=== PATIENT | female | born 1955 | race American Indian/Alaskan Native ===

== ENCOUNTER 2017-03-24 13:02 | Emergency (ER) | payer MEDICARE ==
--- NOTE | 2017-03-24 14:31 | XRay Report ---
RIGHT SHOULDER: Trauma, pain. Routine views demonstrate normal bony and soft tissue structures with normal joint alignment of the shoulder. IMPRESSION: Normal study.
[2017-03-24 14:36] LABS: Albumin 2.2 g/dL (3.9-5); Albumin/Globulin Ratio 0.6 %; BUN/Creatinine Ratio 7.05; Bilirubin,Total 0.3 mg/dL (0.1-1.2); Calcium 7.7 mg/dL (8.4-10.2); Chloride 104.8 mmol/L (98-107); Potassium 4.3 mmol/L (3.6-5.0); Total Protein 5.6 g/dL (6.3-8.2)
[2017-03-24 14:46] LABS: Hematocrit 26.6 % (30.3-42.9); Hemoglobin 8.4 gm/dl (10.1-14.3); Mean Corpuscular HGB Conc 32 % (30-34); Mean Corpuscular Hemoglobin 28 pg (28-32); Mean Corpuscular Volume 89 fl (79-97); Platelet Count 198 K/mm3 (140-440); Red Cell Distribution Width 16.8 % (13.2-15.2); White Blood Count 7.8 K/mm3 (4.5-11.0)
--- NOTE | 2017-03-24 14:52 | XRay Report ---
Right knee: Trauma, pain. There is a suprapatellar joint effusion. No focal swelling. There is no fracture and no dislocation. There is calcification of the medial meniscus as well as atherosclerosis of the arterial vessels. Impression: Joint effusion possibly due to trauma. No fracture. RIGHT SHOULDER: Trauma, pain. Routine views demonstrate normal bony and soft tissue structures with normal joint alignment of the shoulder. IMPRESSION: Normal study.
[2017-03-24 15:03] LABS: INR 1.07 (0.87-1.13); Partial Thromboplastin Time 37.4 Sec. (24.2-36.6)
--- NOTE | 2017-03-24 15:31 | Emergency Department Report ---
HPI - General Chief Complaint: Fall Time Seen by Provider: 03/24/17 15:24 - HPI HPI: PATIENT SLIPPED AND FEEL TODAY, C/O RIGHT KNEE PAIN, RIGHT SHOULDER PAIN AFTER SLIPPING AND FALLING TODAY. ABLE TO AMBULATE ED Past Medical Hx - Past Medical History Previous Medical History?: Yes Hx Hypertension: Yes Hx Diabetes: Yes Hx Renal Disease: Yes (stage 5) Additional medical history: leaky valve - Surgical History Additional Surgical History: AV graft L. arm - Social History Smoking Status: Former Smoker Substance Use Type: None - Medications Home Medications: Home Medications Medication Instructions Recorded Confirmed Last Taken Type Aspirin [Adult Low Dose Aspirin EC] 81 mg PO DAILY 03/24/17 03/24/17 Unknown History AtorvaSTATin [Lipitor] 80 mg PO QHS 03/24/17 03/24/17 Unknown History B Complex & C No.20/Folic Acid 1 mg PO DAILY 03/24/17 03/24/17 Unknown History [Nephrocaps Softgel] Calcitriol [Rocaltrol] 1 mcg PO QDAY 03/24/17 03/24/17 Unknown History Cholecalciferol Vit D3 [Vitamin D3] 1,000 units PO DAILY 03/24/17 03/24/17 Unknown History Cinacalcet HCl [Sensipar] 60 mg PO DAILY 03/24/17 03/24/17 Unknown History Epoetin Domingo [Epogen] 20,000 unit SQ Q7D 03/24/17 03/24/17 Unknown History Gentamicin 0.1% Top Oint(Nf) 1 applic TP TID 03/24/17 03/24/17 Unknown History [Gentamicin 0.1% Top Oint (Nf)] Insulin NPH Hum/Reg Insulin Hm 30 unit SQ BID 03/24/17 03/24/17 Unknown History [HumuLIN 70-30 Vial] Midodrine [Proamatine] 5 mg PO TID PRN 03/24/17 03/24/17 Unknown History Pantoprazole [Protonix] 40 mg PO QDAY 03/24/17 03/24/17 Unknown History Prasugrel [Effient] 10 mg PO DAILY 03/24/17 03/24/17 Unknown History Sevelamer HCl [Renagel] 2,400 mg PO TID 03/24/17 03/24/17 Unknown History ED Review of Systems ROS: Stated complaint: Other details as noted in HPI Physical Exam - Physical Exam Vital Signs: Vital Signs 03/24/17 03/24/17 03/24/17 12:53 13:00 13:10 Temperature Pulse Rate 88 88 Respiratory 18 12 Rate Blood Pressure 167/79 163/73 Blood Pressure [Left] O2 Sat by Pulse 98 97 96 Oximetry 03/24/17 03/24/17 03/24/17 13:17 13:20 13:30 Temperature 98.2 F Pulse Rate 89 Respiratory 18 Rate Blood Pressure 167/79 169/76 169/76 Blood Pressure [Left] O2 Sat by Pulse 98 98 95 Oximetry 03/24/17 03/24/17 13:43 13:50 Temperature 98.5 F Pulse Rate 88 Respiratory 18 18 Rate Blood Pressure Blood Pressure 167/79 [Left] O2 Sat by Pulse 98 98 Oximetry Physical Exam: GENERAL: The patient is well-developed well-nourished. HEENT: Normocephalic. Atraumatic. Extraocular motions are intact. Patient has moist mucous membranes. NECK: Supple. No meningitic signs are noted. There is no adenopathy noted. CHEST/LUNGS: Clear to auscultation. There is no respiratory distress noted. HEART/CARDIOVASCULAR: Regular. There is no tachycardia. There is no gallop rub or murmur. ABDOMEN: Abdomen is soft, nontender. Patient has normal bowel sounds. There is no abdominal distention. SKIN: There is no rash. There is no edema. There is no diaphoresis. NEURO: The patient is awake, alert, and oriented. The patient is cooperative. The patient has no focal neurologic deficits. The patient has normal speech and gait. Cranial nerves II through XII grossly intact, no drift. Negative Romberg MUSCULOSKELETAL: r. knee tenderness ED Course Vital Signs 03/24/17 03/24/17 03/24/17 12:53 13:00 13:10 Temperature Pulse Rate 88 88 Respiratory 18 12 Rate Blood Pressure 167/79 163/73 Blood Pressure [Left] O2 Sat by Pulse 98 97 96 Oximetry 03/24/17 03/24/17 03/24/17 13:17 13:20 13:30 Temperature 98.2 F Pulse Rate 89 Respiratory 18 Rate Blood Pressure 167/79 169/76 169/76 Blood Pressure [Left] O2 Sat by Pulse 98 98 95 Oximetry 03/24/17 03/24/17 13:43 13:50 Temperature 98.5 F Pulse Rate 88 Respiratory 18 18 Rate Blood Pressure Blood Pressure 167/79 [Left] O2 Sat by Pulse 98 98 Oximetry ED Medical Decision Making - Lab Data Result diagrams: 03/24/17 13:59 03/24/17 13:59 - Radiology Data Radiology results: image reviewed Critical care attestation.: If time is entered above; I have spent that time in minutes in the direct care of this critically ill patient, excluding procedure time. ED Disposition Clinical Impression: Fall Qualifiers: Encounter type: initial encounter Qualified Code(s): W19.XXXA - Unspecified fall, initial encounter Knee pain, acute Qualifiers: Laterality: right Qualified Code(s): M25.561 - Pain in right knee Shoulder pain, acute Qualifiers: Laterality: right Qualified Code(s): M25.511 - Pain in right shoulder Disposition: DC-01 TO HOME OR SELFCARE Is pt being admited?: No Does the pt Need Aspirin: No Condition: Stable Referrals: FABIO ROSENTHAL MD [Primary Care Provider] - 3-5 Days
[2017-03-24 16:28] VITALS: BP 150/75
== END 2017-03-24 16:28 | disposition home or self-care (01) ==
LOC: ED 13:02 → EDSTATUS 13:05 → ED 16:28
DX: M25.561 Pain in right knee (principal); M25.511 Pain in right shoulder; E11.22 Type 2 diabetes mellitus with diabetic chronic kidney disease; I12.0 Hypertensive chronic kidney disease with stage 5 chronic kidney disease or end stage renal disease; N18.5 Chronic kidney disease, stage 5; Z87.891 Personal history of nicotine dependence; Z79.82 Long term (current) use of aspirin; W01.0XXA Fall on same level from slipping, tripping and stumbling without subsequent striking against object, initial encounter; Y93.89 Activity, other specified; Y92.89 Other specified places as the place of occurrence of the external cause; Y99.8 Other external cause status
CPT/HCPCS: 36415; 74000; 80053; 85027; 85610; 85730

== ENCOUNTER 2017-05-07 13:35 | Outpatient (CLI) | payer MEDICARE ==
[2017-05-07] MEDS ORDERED: XYLOCAINE TOPICAL 4% TP ONE (14:23)
== END 2017-05-07 13:36 | disposition home or self-care (01) ==
LOC: WOUND 13:35
PROVIDERS: ATTEND Podiatrist
DX: E11.621 Type 2 diabetes mellitus with foot ulcer (principal); L97.411 Non-pressure chronic ulcer of right heel and midfoot limited to breakdown of skin; E11.51 Type 2 diabetes mellitus with diabetic peripheral angiopathy without gangrene; E11.42 Type 2 diabetes mellitus with diabetic polyneuropathy; E11.22 Type 2 diabetes mellitus with diabetic chronic kidney disease; I12.0 Hypertensive chronic kidney disease with stage 5 chronic kidney disease or end stage renal disease; N18.6 End stage renal disease; Z99.2 Dependence on renal dialysis; Z98.62 Peripheral vascular angioplasty status; Z87.891 Personal history of nicotine dependence
CPT/HCPCS: 99215; G0463

== ENCOUNTER 2017-05-13 18:58 | Outpatient (CLI) | payer MEDICARE ==
--- NOTE | 2017-05-26 13:32 | XRay Report ---
Right foot 3 views: History: Right heel ulcer. Findings: Osteopenia. Vascular calcifications. No periosteal reaction or lytic lesion. Patient status post tonsillectomy amputation proximal phalanx fifth toe. Normal appearing calcaneum. Impression: Findings as detailed above. If clinically osteomyelitis is suspected bone scan would be recommended.
== END 2017-05-13 18:59 | disposition home or self-care (01) ==
LOC: XRAY 18:58
PROVIDERS: ATTEND Podiatrist
DX: L97.519 Non-pressure chronic ulcer of other part of right foot with unspecified severity (principal); M85.871 Other specified disorders of bone density and structure, right ankle and foot; M25.871 Other specified joint disorders, right ankle and foot; I12.0 Hypertensive chronic kidney disease with stage 5 chronic kidney disease or end stage renal disease; N18.5 Chronic kidney disease, stage 5; Z89.421 Acquired absence of other right toe(s); Z90.89 Acquired absence of other organs

== ENCOUNTER 2017-05-14 11:23 | Outpatient (CLI) | payer MEDICARE ==
[2017-05-14] MEDS ORDERED: XYLOCAINE TOPICAL 4% TP ONE ×2 (12:00→13:24)
== END 2017-05-14 11:24 | disposition home or self-care (01) ==
LOC: WOUND 11:23
PROVIDERS: ATTEND Podiatrist
DX: E11.621 Type 2 diabetes mellitus with foot ulcer (principal); L97.411 Non-pressure chronic ulcer of right heel and midfoot limited to breakdown of skin; E11.42 Type 2 diabetes mellitus with diabetic polyneuropathy; E11.51 Type 2 diabetes mellitus with diabetic peripheral angiopathy without gangrene; E11.22 Type 2 diabetes mellitus with diabetic chronic kidney disease; I12.0 Hypertensive chronic kidney disease with stage 5 chronic kidney disease or end stage renal disease; N18.6 End stage renal disease; Z99.2 Dependence on renal dialysis; Z98.62 Peripheral vascular angioplasty status

== ENCOUNTER 2017-05-21 13:49 | Outpatient (CLI) | payer MEDICARE ==
[2017-05-21] MEDS ORDERED: XYLOCAINE TOPICAL 4% TP ONE (14:10)
== END 2017-05-21 13:50 | disposition home or self-care (01) ==
LOC: WOUND 13:49
PROVIDERS: ATTEND Podiatrist
DX: E11.621 Type 2 diabetes mellitus with foot ulcer (principal); L97.412 Non-pressure chronic ulcer of right heel and midfoot with fat layer exposed; E11.36 Type 2 diabetes mellitus with diabetic cataract; E11.51 Type 2 diabetes mellitus with diabetic peripheral angiopathy without gangrene; E11.42 Type 2 diabetes mellitus with diabetic polyneuropathy; E11.22 Type 2 diabetes mellitus with diabetic chronic kidney disease; I12.0 Hypertensive chronic kidney disease with stage 5 chronic kidney disease or end stage renal disease; N18.6 End stage renal disease; Z99.2 Dependence on renal dialysis; Z98.61 Coronary angioplasty status; Z87.891 Personal history of nicotine dependence

== ENCOUNTER 2017-06-04 12:56 | Outpatient (CLI) | payer MEDICARE ==
[2017-06-04] MEDS ORDERED: XYLOCAINE TOPICAL 4% TP ONE ×2 (13:13→14:00)
== END 2017-06-04 12:57 | disposition home or self-care (01) ==
LOC: WOUND 12:56
PROVIDERS: ATTEND Podiatrist
DX: E11.621 Type 2 diabetes mellitus with foot ulcer (principal); L97.412 Non-pressure chronic ulcer of right heel and midfoot with fat layer exposed; E11.51 Type 2 diabetes mellitus with diabetic peripheral angiopathy without gangrene; E11.22 Type 2 diabetes mellitus with diabetic chronic kidney disease; E11.42 Type 2 diabetes mellitus with diabetic polyneuropathy; I12.0 Hypertensive chronic kidney disease with stage 5 chronic kidney disease or end stage renal disease; N18.6 End stage renal disease; Z99.2 Dependence on renal dialysis; Z98.62 Peripheral vascular angioplasty status; Z87.891 Personal history of nicotine dependence

== ENCOUNTER 2017-06-25 13:07 | Outpatient (CLI) | payer MEDICARE ==
[2017-06-25] MEDS ORDERED: XYLOCAINE TOPICAL 4% TP ONE (13:41)
== END 2017-06-25 13:08 | disposition home or self-care (01) ==
LOC: WOUND 13:07
PROVIDERS: ATTEND Podiatrist
DX: E11.621 Type 2 diabetes mellitus with foot ulcer (principal); L97.412 Non-pressure chronic ulcer of right heel and midfoot with fat layer exposed; E11.51 Type 2 diabetes mellitus with diabetic peripheral angiopathy without gangrene; E11.22 Type 2 diabetes mellitus with diabetic chronic kidney disease; I12.0 Hypertensive chronic kidney disease with stage 5 chronic kidney disease or end stage renal disease; N18.6 End stage renal disease; E11.42 Type 2 diabetes mellitus with diabetic polyneuropathy; Z99.2 Dependence on renal dialysis; Z98.42 Cataract extraction status, left eye; Z98.41 Cataract extraction status, right eye; Z87.891 Personal history of nicotine dependence

== ENCOUNTER 2017-07-09 13:22 | Outpatient (CLI) | payer MEDICARE ==
[2017-07-09] MEDS ORDERED: XYLOCAINE TOPICAL 4% TP ONE (13:49)
== END 2017-07-09 13:23 | disposition home or self-care (01) ==
LOC: WOUND 13:22
PROVIDERS: ATTEND Podiatrist
DX: E11.621 Type 2 diabetes mellitus with foot ulcer (principal); L97.412 Non-pressure chronic ulcer of right heel and midfoot with fat layer exposed; E11.51 Type 2 diabetes mellitus with diabetic peripheral angiopathy without gangrene; E11.42 Type 2 diabetes mellitus with diabetic polyneuropathy; E11.22 Type 2 diabetes mellitus with diabetic chronic kidney disease; I12.0 Hypertensive chronic kidney disease with stage 5 chronic kidney disease or end stage renal disease; N18.6 End stage renal disease; G62.9 Polyneuropathy, unspecified; Z87.891 Personal history of nicotine dependence; Z99.2 Dependence on renal dialysis; Z98.41 Cataract extraction status, right eye; Z98.42 Cataract extraction status, left eye

== ENCOUNTER 2017-07-14 18:30 | Inpatient (IN) | payer MEDICARE ==
[2017-07-14 19:10] LABS: Basophils % (Auto) 1.4 % (0.0-1.8); Eosinophils % (Auto) 3.2 % (0.0-4.3); Mean Corpuscular HGB Conc 30 % (30-34); Mean Corpuscular Hemoglobin 27 pg (28-32); Mean Corpuscular Volume 90 fl (79-97); Platelet Count 177 K/mm3 (140-440); Red Blood Count 3.46 M/mm3 (3.65-5.03); Red Cell Distribution Width 16.8 % (13.2-15.2); White Blood Count 7.7 K/mm3 (4.5-11.0)
[2017-07-14 19:15] LABS: Hematocrit 31.3 % (30.3-42.9); Hemoglobin 9.4 gm/dl (10.1-14.3)
[2017-07-14 19:32] LABS: Albumin 3.6 g/dL (3.9-5); Albumin/Globulin Ratio 1.2 %; Bilirubin,Total 0.2 mg/dL (0.1-1.2); Calcium 7.5 mg/dL (8.4-10.2); Chloride 104.8 mmol/L (98-107); Potassium 5.9 mmol/L (3.6-5.0); Total Protein 6.6 g/dL (6.3-8.2)
--- NOTE | 2017-07-15 08:36 | Emergency Department Report ---
ED Medical Clearance HPI - General Chief complaint: Nausea/Vomiting/Diarrhea Stated complaint: NEEDS TO BE DIALYSIS Time Seen by Provider: 07/15/17 08:31 Source: patient, RN notes reviewed Mode of arrival: Ambulatory Limitations: No Limitations - History of Present Illness Initial comments: This is a 62-year-old female who was previously unknown to this provider, past medical history includes an stage renal disease on peritoneal dialysis. Her splitter operator is Dr. Nolasco She has a right sided hemodialysis access catheter in her anterior chest wall. It has been there for 3 months. She reports that it works. She reports that her peritoneal dialysis access catheter stopped working a few weeks ago. Her symptoms are constant. They do not radiate anywhere. They do not have a qualitative nature. They do not have exacerbating or relieving factors, with the exception of dialysis, which she believes will improve her symptoms. MD Complaint: other -: Gradual, week(s) Reason for Medical Clearance: other Place: home Alledged Intoxication: No Compliant with Home Medications: Yes Traumatic Symptoms: denies traumatic injury Associated Symptoms: shortness of breath, malaise, nausea/vomiting. denies: chest pain, palpitations, diaphoresis, confusion, cough, fever/chills, headaches , anorexia, rash, seizure, syncope, weakness Home medications: Home Medications Medication Instructions Recorded Confirmed Last Taken Aspirin [Adult Low Dose Aspirin EC] 81 mg PO DAILY 03/24/17 07/15/17 Unknown AtorvaSTATin [Lipitor] 80 mg PO QHS 03/24/17 07/15/17 Unknown B Complex W-C No.20/Folic Acid 1 mg PO DAILY 03/24/17 07/15/17 Unknown [Nephrocaps Softgel] Calcitriol [Rocaltrol] 1 mcg PO QDAY 03/24/17 07/15/17 Unknown Cholecalciferol Vit D3 [Vitamin D3] 1,000 units PO DAILY 03/24/17 07/15/17 Unknown Cinacalcet HCl [Sensipar] 60 mg PO DAILY 03/24/17 07/15/17 Unknown Epoetin Domingo [Epogen] 20,000 unit SQ Q7D 03/24/17 07/15/17 Unknown Gentamicin 0.1% Top Oint(Nf) 1 applic TP TID 03/24/17 07/15/17 Unknown [Gentamicin 0.1% Top Oint (Nf)] Insulin NPH Hum/Reg Insulin Hm 30 unit SQ BID 03/24/17 07/15/17 Unknown [HumuLIN 70-30 Vial] Midodrine [Proamatine] 5 mg PO TID PRN 03/24/17 07/15/17 Unknown Pantoprazole [Protonix] 40 mg PO QDAY 03/24/17 07/15/17 Unknown Prasugrel [Effient] 10 mg PO DAILY 03/24/17 07/15/17 Unknown Sevelamer HCl [Renagel] 2,400 mg PO TID 03/24/17 07/15/17 Unknown Allergies/Adverse reactions: Allergies Allergy/AdvReac Type Severity Reaction Status Date / Time levofloxacin [From Levaquin] Allergy Severe Itching Verified 07/14/17 18:35 lisinopril Allergy Mild Swelling Verified 07/14/17 18:35 ED Review of Systems ROS: Stated complaint: NEEDS TO BE DIALYSIS Other details as noted in HPI Constitutional: malaise. denies: fever Eyes: denies: vision change Respiratory: shortness of breath Cardiovascular: denies: chest pain Gastrointestinal: nausea Genitourinary: denies: dysuria Musculoskeletal: as per HPI Skin: as per HPI Neurological: as per HPI ED Past Medical Hx - Past Medical History Hx Hypertension: Yes Hx Diabetes: Yes Hx Renal Disease: Yes (stage 5) Additional medical history: leaky valve - Surgical History Additional Surgical History: AV graft L. arm - Social History Smoking Status: Never Smoker Substance Use Type: None - Medications Home Medications: Home Medications Medication Instructions Recorded Confirmed Last Taken Type Aspirin [Adult Low Dose Aspirin EC] 81 mg PO DAILY 03/24/17 07/15/17 Unknown History AtorvaSTATin [Lipitor] 80 mg PO QHS 03/24/17 07/15/17 Unknown History B Complex W-C No.20/Folic Acid 1 mg PO DAILY 03/24/17 07/15/17 Unknown History [Nephrocaps Softgel] Calcitriol [Rocaltrol] 1 mcg PO QDAY 03/24/17 07/15/17 Unknown History Cholecalciferol Vit D3 [Vitamin D3] 1,000 units PO DAILY 03/24/17 07/15/17 Unknown History Cinacalcet HCl [Sensipar] 60 mg PO DAILY 03/24/17 07/15/17 Unknown History Epoetin Domingo [Epogen] 20,000 unit SQ Q7D 03/24/17 07/15/17 Unknown History Gentamicin 0.1% Top Oint(Nf) 1 applic TP TID 03/24/17 07/15/17 Unknown History [Gentamicin 0.1% Top Oint (Nf)] Insulin NPH Hum/Reg Insulin Hm 30 unit SQ BID 03/24/17 07/15/17 Unknown History [HumuLIN 70-30 Vial] Midodrine [Proamatine] 5 mg PO TID PRN 03/24/17 07/15/17 Unknown History Pantoprazole [Protonix] 40 mg PO QDAY 03/24/17 07/15/17 Unknown History Prasugrel [Effient] 10 mg PO DAILY 03/24/17 07/15/17 Unknown History Sevelamer HCl [Renagel] 2,400 mg PO TID 03/24/17 07/15/17 Unknown History ED Physical Exam - General Limitations: No Limitations General appearance: alert, in no apparent distress - Head Head exam: Present: atraumatic, normocephalic - Eye Eye exam: Present: normal appearance, EOMI. Absent: nystagmus - ENT ENT exam: Present: normal exam, normal orophraynx, mucous membranes moist, normal external ear exam - Neck Neck exam: Present: normal inspection, full ROM - Respiratory Respiratory exam: Present: normal lung sounds bilaterally. Absent: respiratory distress, chest wall tenderness - Cardiovascular Cardiovascular Exam: Present: normal rhythm, bradycardia, normal heart sounds. Absent: systolic murmur, diastolic murmur, rubs, gallop - GI/Abdominal GI/Abdominal exam: Present: soft, normal bowel sounds. Absent: distended, tenderness, guarding, rebound, rigid, pulsatile mass - Extremities Exam Extremities exam: Present: normal inspection, pedal edema. Absent: calf tenderness - Back Exam Back exam: Present: normal inspection, full ROM. Absent: tenderness, CVA tenderness (R), paraspinal tenderness, vertebral tenderness - Neurological Exam Neurological exam: Present: alert, oriented X3, CN II-XII intact, other ( Extraocular movements intact. Tongue midline. No facial droop. Facial sensation intact to light touch in the V1, V2, V3 distribution bilaterally. 5 and 5 strength in 4 extremities.. Sensation is intact to light touch in 4 extremities.). Absent: motor sensory deficit - Psychiatric Psychiatric exam: Present: normal affect, normal mood - Skin Skin exam: Present: warm, other (hyperpigmentation noted to the bilateral lower extremities) ED Course Vital Signs 07/14/17 07/15/17 07/15/17 18:36 00:56 11:03 Temperature 97.7 F 98.3 F Pulse Rate 59 L 54 L Pulse Rate [ 57 L Anterior Bilateral Throughout] Respiratory 16 18 Rate Respiratory 16 Rate [Anterior Bilateral Throughout] Blood Pressure 157/76 134/53 O2 Sat by Pulse 98 98 Oximetry 07/15/17 11:15 Temperature Pulse Rate Pulse Rate [ 68 Anterior Bilateral Throughout] Respiratory Rate Respiratory 16 Rate [Anterior Bilateral Throughout] Blood Pressure O2 Sat by Pulse Oximetry - Reevaluation(s) Reevaluation #1: 07/15/17 09:05 Still awaiting callback from patient's splitter operator. Case presents to the hospital nurse practitioner, Saul Fisher who accepts the patient to the medical service. Reevaluation #2: 07/15/17 09:15 Case presents to the patient's primary splitter operator, Dr. Nolasco, who agrees this plan for admission, he will arrange for dialysis. ED Medical Decision Making - Lab Data Result diagrams: 07/14/17 18:54 07/14/17 18:54 Vital Signs 07/14/17 07/15/17 18:36 00:56 Temperature 97.7 F 98.3 F Pulse Rate 59 L 54 L Respiratory 16 18 Rate Blood Pressure 157/76 134/53 O2 Sat by Pulse 98 98 Oximetry Lab Results 07/14/17 07/14/17 Range/Units 18:54 18:54 WBC 7.7 (4.5-11.0) K/mm3 RBC 3.46 L (3.65-5.03) M/mm3 Hgb 9.4 L (10.1-14.3) gm/dl Hct 31.3 (30.3-42.9) % MCV 90 (79-97) fl MCH 27 L (28-32) pg MCHC 30 (30-34) % RDW 16.8 H (13.2-15.2) % Plt Count 177 (140-440) K/mm3 Lymph % (Auto) 22.7 (13.4-35.0) % Andrews % (Auto) 10.0 H (0.0-7.3) % Eos % (Auto) 3.2 (0.0-4.3) % Baso % (Auto) 1.4 (0.0-1.8) % Lymph # 1.8 (1.2-5.4) K/mm3 Andrews # 0.8 (0.0-0.8) K/mm3 Eos # 0.2 (0.0-0.4) K/mm3 Baso # 0.1 (0.0-0.1) K/mm3 Seg Neutrophils % 62.7 (40.0-70.0) % Seg Neutrophils # 4.9 (1.8-7.7) K/mm3 Sodium 141 (137-145) mmol/L Potassium 5.9 H (3.6-5.0) mmol/L Chloride 104.8 (98-107) mmol/L Carbon Dioxide 14 L (22-30) mmol/L Anion Gap 28 mmol/L BUN 85 H (7-17) mg/dL Creatinine 19.0 H (0.7-1.2) mg/dL Estimated GFR 2 ml/min BUN/Creatinine Ratio 4 % Glucose 85 (65-100) mg/dL Calcium 7.5 L (8.4-10.2) mg/dL Total Bilirubin 0.20 (0.1-1.2) mg/dL AST 32 (5-40) units/L ALT 31 (7-56) units/L Alkaline Phosphatase 159 H (35-129) units/L Total Protein 6.6 (6.3-8.2) g/dL Albumin 3.6 L (3.9-5) g/dL Albumin/Globulin Ratio 1.2 % - EKG Data -: EKG Interpreted by Ri EKG shows normal: sinus rhythm Rate: normal - EKG Data 07/15/17 09:06 Sinus, bradycardia, 55 bpm, normal axis, QTC prolonged, not morphologically consistent with ST elevation myocardial infarction - Radiology Data Differential - Medical Decision Making Differential diagnosis, including not limited to: Hyperkalemia, azotemia, nonfunctioning peritoneal dialysis access catheter Assessment and plan: 62-year-old female who reports not having had dialysis for 2 weeks. She is afebrile, with reassuring vital signs, laboratory studies indicate hyperkalemia and azotemia. An EKG is pending, a stat page has been placed to her private splitter operator to arrange dialysis, and I will also discuss with the hospital team to arrange admission for emergent dialysis. Patient resting comfortably, in no distress, saturating well, with no increased work of breathing. ED Disposition Clinical Impression: Hyperkalemia, End stage renal disease Disposition: OP ADMIT IP TO THIS HOSP Is pt being admited?: Yes Condition: Good
[2017-07-15] MEDS ORDERED: KIONEX PO ONE (09:06)
[2017-07-15] MEDS ORDERED: D50W (25GM) Syringe IV ONE (09:06)
[2017-07-15] MEDS ORDERED: SODIUM BICARBONATE IV ONE (09:06)
[2017-07-15] MEDS ORDERED: PROVENTIL IH ONE ×2 (09:06→10:53)
[2017-07-15] MEDS ORDERED: D50W (25GM) Vial IV NR (10:00)
[2017-07-15] MEDS ORDERED: SODIUM BICARBONATE IV NR (10:00)
[2017-07-15] MEDS ORDERED: MILK OF MAGNESIA PO PRN (10:15)
[2017-07-15] MEDS ORDERED: TYLENOL PO PRN (10:15)
[2017-07-15] MEDS ORDERED: DULCOLAX PR PRN (10:15)
[2017-07-15] MEDS ORDERED: ZOFRAN IV PRN (10:15)
--- NOTE | 2017-07-15 10:19 | History and Physical Report ---
History of Present Illness Date of examination: 07/15/17 Date of admission: 07/15/2017 Chief complaint: needing dialysis History of present illness: Patient is 62 years old -[place] female with past medical history of hypertension, diabetes mellitus and end-stage renal disease on peritoneal dialysis at home. Patient perinasal dialysis access catheter stopped working; nothing going in or nothing come out. She was worried and came to ED.Patient had the same problem and was diagnosed with peritonitis in April. She reported being nauseated but denies vomiting. She denies chest pain, shortness of breath or heart palpitations. Past History Past Medical History: diabetes, ESRD, hypertension Past Surgical History: Other (Av gravt L-arm) Social history: denies: smoking, alcohol abuse Family history: hypertension Medications and Allergies Allergies Allergy/AdvReac Type Severity Reaction Status Date / Time levofloxacin [From Levaquin] Allergy Severe Itching Verified 07/14/17 18:35 lisinopril Allergy Mild Swelling Verified 07/14/17 18:35 Home Medications Medication Instructions Recorded Confirmed Last Taken Type Aspirin [Adult Low Dose Aspirin EC] 81 mg PO DAILY 03/24/17 07/15/17 Unknown History AtorvaSTATin [Lipitor] 80 mg PO QHS 03/24/17 07/15/17 Unknown History B Complex W-C No.20/Folic Acid 1 mg PO DAILY 03/24/17 07/15/17 Unknown History [Nephrocaps Softgel] Calcitriol [Rocaltrol] 1 mcg PO QDAY 03/24/17 07/15/17 Unknown History Cholecalciferol Vit D3 [Vitamin D3] 1,000 units PO DAILY 03/24/17 07/15/17 Unknown History Cinacalcet HCl [Sensipar] 60 mg PO DAILY 03/24/17 07/15/17 Unknown History Epoetin Domingo [Epogen] 20,000 unit SQ Q7D 03/24/17 07/15/17 Unknown History Gentamicin 0.1% Top Oint(Nf) 1 applic TP TID 03/24/17 07/15/17 Unknown History [Gentamicin 0.1% Top Oint (Nf)] Insulin NPH Hum/Reg Insulin Hm 30 unit SQ BID 03/24/17 07/15/17 Unknown History [HumuLIN 70-30 Vial] Midodrine [Proamatine] 5 mg PO TID PRN 03/24/17 07/15/17 Unknown History Pantoprazole [Protonix] 40 mg PO QDAY 03/24/17 07/15/17 Unknown History Prasugrel [Effient] 10 mg PO DAILY 03/24/17 07/15/17 Unknown History Sevelamer HCl [Renagel] 2,400 mg PO TID 03/24/17 07/15/17 Unknown History Active Meds: Active Medications Acetaminophen (Tylenol) 650 mg PO Q4H PRN PRN Reason: Pain MILD(1-3)/Fever >100.5/RAMÍREZ Aspirin (Halfprin Ec) 81 mg PO DAILY [facility] Atorvastatin Calcium (Lipitor) 80 mg PO QHS [facility]ON Bisacodyl (Dulcolax) 10 mg NE QDAY PRN PRN Reason: Constipation unrelieved by MOM Calcitriol (Rocaltrol) 1 mcg PO QDAY [facility] Cholecalciferol (Vitamin D3) 1,000 unit PO DAILY [facility] Dextrose (D50w (25gm) Vial) 25 gm IV ONCE NR Stop: 07/15/17 13:00 Heparin Sodium (Porcine) (Heparin) 5,000 unit SUB-Q Q12HR [facility] Insulin Human Isoph/Insulin Regular (Novolin 70/30) 30 unit SUB-Q BID [facility] Magnesium Hydroxide (Milk Of Magnesia) 30 ml PO Q4H PRN PRN Reason: Constipation Miscellaneous Medication (Cinacalcet Hcl [Sensipar]) 60 mg PO DAILY [facility] Miscellaneous Medication (Sevelamer Hcl [Renagel]) 2,400 mg PO TID [facility] Multivit/Ca Carb/B Cmplx/FA/Prenat (Renal Caps) cap PO DAILY [facility] Ondansetron HCl (Zofran) 4 mg IV Q8H PRN PRN Reason: N/V unrelieved by Reglan Pantoprazole Sodium (Protonix) 40 mg PO QDAY [facility] Prasugrel (Effient) 10 mg PO DAILY [facility] Sodium Bicarbonate (Sodium Bicarbonate) 50 meq IV ONCE NR Stop: 07/15/17 13:00 Review of Systems Constitutional: no weight loss, no weight gain, no fever, no chills Ears, nose, mouth and throat: no ear pain, no ear discharge, no tinnitis, no decreased hearing, no nose pain Cardiovascular: no chest pain, no syncope, no lightheadedness, no shortness of breath Respiratory: no cough, no excessive sputum, no hemoptysis, no shortness of breath Gastrointestinal: nausea, no vomiting, no diarrhea, no constipation Genitourinary Female: no urinary frequency, no urge incontinence Rectal: no incontinence, no bleeding Musculoskeletal: no neck stiffness, no shooting arm pain, no low back pain, no shooting leg pain Integumentary: no sores, no wounds, no boils Neurological: no parathesias, no tingling Psychiatric: no insomnia, no hypersomnia, no change in libido Endocrine: no polydipsia, no nocturia Hematologic/Lymphatic: no easy bruising, no easy bleeding Allergic/Immunologic: no urticaria, no wheezing Exam - Constitutional Vitals: Temp Pulse Resp BP Pulse Ox 98.3 F 54 L 18 134/53 98 07/15/17 00:56 07/15/17 00:56 07/15/17 00:56 07/15/17 00:56 07/15/17 00:56 General appearance: Present: no acute distress - EENT Eyes: Present: PERRL ENT: hearing intact, clear oral mucosa - Neck Neck: Present: supple - Respiratory Respiratory effort: normal Respiratory: bilateral: CTA - Cardiovascular Rhythm: regular Heart Sounds: Present: S1 & S2 - Abdominal General gastrointestinal: Present: soft, non-tender, other (PD catheter) Female genitourinary: Present: deferred - Rectal Rectal Exam: deferred - Integumentary Integumentary: Present: clear, warm, dry - Musculoskeletal Musculoskeletal: strength equal bilaterally - Psychiatric Psychiatric: appropriate mood/affect - Neurologic Neurologic: moves all extremities - Allied Health Allied health notes reviewed: nursing Results - Labs CBC & Chem 7: 07/14/17 18:54 07/14/17 18:54 Labs: Laboratory Last Values WBC 7.7 K/mm3 (4.5-11.0) 07/14/17 18:54 RBC 3.46 M/mm3 (3.65-5.03) L 07/14/17 18:54 Hgb 9.4 gm/dl (10.1-14.3) L 07/14/17 18:54 Hct 31.3 % (30.3-42.9) 07/14/17 18:54 MCV 90 fl (79-97) 07/14/17 18:54 MCH 27 pg (28-32) L 07/14/17 18:54 MCHC 30 % (30-34) 07/14/17 18:54 RDW 16.8 % (13.2-15.2) H 07/14/17 18:54 Plt Count 177 K/mm3 (140-440) 07/14/17 18:54 Lymph % (Auto) 22.7 % (13.4-35.0) 07/14/17 18:54 Stephenson % (Auto) 10.0 % (0.0-7.3) H 07/14/17 18:54 Eos % (Auto) 3.2 % (0.0-4.3) 07/14/17 18:54 Baso % (Auto) 1.4 % (0.0-1.8) 07/14/17 18:54 Lymph # 1.8 K/mm3 (1.2-5.4) 07/14/17 18:54 Stephenson # 0.8 K/mm3 (0.0-0.8) 07/14/17 18:54 Eos # 0.2 K/mm3 (0.0-0.4) 07/14/17 18:54 Baso # 0.1 K/mm3 (0.0-0.1) 07/14/17 18:54 Seg Neutrophils % 62.7 % (40.0-70.0) 07/14/17 18:54 Seg Neutrophils # 4.9 K/mm3 (1.8-7.7) 07/14/17 18:54 Sodium 141 mmol/L (137-145) 07/14/17 18:54 Potassium 5.9 mmol/L (3.6-5.0) H 07/14/17 18:54 Chloride 104.8 mmol/L (98-107) 07/14/17 18:54 Carbon Dioxide 14 mmol/L (22-30) L 07/14/17 18:54 Anion Gap 28 mmol/L 07/14/17 18:54 BUN 85 mg/dL (7-17) H 07/14/17 18:54 Creatinine 19.0 mg/dL (0.7-1.2) H 07/14/17 18:54 Estimated GFR 2 ml/min 07/14/17 18:54 BUN/Creatinine Ratio 4 % 07/14/17 18:54 Glucose 85 mg/dL (65-100) 07/14/17 18:54 POC Glucose 61 (70-105) L 07/15/17 09:44 Calcium 7.5 mg/dL (8.4-10.2) L 07/14/17 18:54 Total Bilirubin 0.20 mg/dL (0.1-1.2) 07/14/17 18:54 AST 32 units/L (5-40) 07/14/17 18:54 ALT 31 units/L (7-56) 07/14/17 18:54 Alkaline Phosphatase 159 units/L (35-129) H 07/14/17 18:54 Total Protein 6.6 g/dL (6.3-8.2) 07/14/17 18:54 Albumin 3.6 g/dL (3.9-5) L 07/14/17 18:54 Albumin/Globulin Ratio 1.2 % 07/14/17 18:54 Assessment and Plan Assessment and plan: Patient is 62 years old -[place] female with past medical history of hypertension, diabetes mellitus and end-stage renal disease on peritoneal dialysis at home. Patient perinasal dialysis access catheter stopped working; nothing going in or nothing come out. She was worried and came to ED. End-stage renal disease on dialysis On peritoneal dialysis Nephrology consulted Hyperkalemia Patient will have urgent dialysis today that will correct it. Diabetes mellitus Accu-Chek before meals and at bedtime Sliding scale insulin/NovoLog ADA carbohydrate consistent diet Hypertensive urgency Continue home antihypertensive medications Closely monitor blood pressure Chronic anemia H&H stable for patient at this point; no blood transfusions needed Closely monitor H&H DVT prophylaxis Heparin Advance Directives: Yes VTE prophylaxis?: Chemical Contraindication Mechanical VTE Prophylaxis: Treatment Not Indicated Plan of care discussed with patient/family: Yes
[2017-07-15] MEDS ORDERED: NACL 0.9% 100 ML IV PRN (10:31)
[2017-07-15] MEDS ORDERED: RENVELA PO SCH (14:00)
[2017-07-15] MEDS ORDERED: NON-FORMULARY (Sevelamer Hcl [Renagel] 2,400 MG) PO SCH (14:00)
[2017-07-15] MEDS ORDERED: D50W (25GM) Syringe IV PRN (15:23)
--- NOTE | 2017-07-15 16:17 | Progress Note ---
Objective - Vital Signs Vital signs: Vital Signs - 12hr 07/15/17 07/15/17 11:03 11:15 Pulse Rate [ 57 L 68 Anterior Bilateral Throughout] Respiratory 16 16 Rate [Anterior Bilateral Throughout] - Lab 07/14/17 18:54 07/14/17 18:54 Most recent lab results Calcium 7.5 mg/dL (8.4-10.2) L 07/14/17 18:54
--- NOTE | 2017-07-15 16:19 | Consultation ---
History of Present Illness - Reason for Consult Consult date: 07/15/17 end stage renal disease, hyperkalemia Requesting physician: MAUR DESAI - History of Present Illness 62-year-old with hx of ESRD on PD presented here 2/2 malfunctioning PD catheter / Pt was on on HD till recently and still has her permcath in place. Her last PD was about two week back. She never told anyone that her PD catheter was not working till yesterday when she was contacted by PD nurse. Has SOB. No CP. + constipation. Past History Past Medical History: diabetes, ESRD, hypertension Past Surgical History: Other (Av gravt L-arm) Social history: denies: smoking, alcohol abuse Family history: hypertension Medications and Allergies Allergies Allergy/AdvReac Type Severity Reaction Status Date / Time levofloxacin [From Levaquin] Allergy Severe Itching Verified 07/14/17 18:35 lisinopril Allergy Mild Swelling Verified 07/14/17 18:35 Home Medications Medication Instructions Recorded Confirmed Last Taken Type Aspirin [Adult Low Dose Aspirin EC] 81 mg PO DAILY 03/24/17 07/15/17 Unknown History AtorvaSTATin [Lipitor] 80 mg PO QHS 03/24/17 07/15/17 Unknown History B Complex W-C No.20/Folic Acid 1 mg PO DAILY 03/24/17 07/15/17 Unknown History [Nephrocaps Softgel] Calcitriol [Rocaltrol] 1 mcg PO QDAY 03/24/17 07/15/17 Unknown History Cholecalciferol Vit D3 [Vitamin D3] 1,000 units PO DAILY 03/24/17 07/15/17 Unknown History Cinacalcet HCl [Sensipar] 60 mg PO DAILY 03/24/17 07/15/17 Unknown History Epoetin Domingo [Epogen] 20,000 unit SQ Q7D 03/24/17 07/15/17 Unknown History Gentamicin 0.1% Top Oint(Nf) 1 applic TP TID 03/24/17 07/15/17 Unknown History [Gentamicin 0.1% Top Oint (Nf)] Insulin NPH Hum/Reg Insulin Hm 30 unit SQ BID 03/24/17 07/15/17 Unknown History [HumuLIN 70-30 Vial] Midodrine [Proamatine] 5 mg PO TID PRN 03/24/17 07/15/17 Unknown History Pantoprazole [Protonix] 40 mg PO QDAY 03/24/17 07/15/17 Unknown History Prasugrel [Effient] 10 mg PO DAILY 03/24/17 07/15/17 Unknown History Sevelamer HCl [Renagel] 2,400 mg PO TID 03/24/17 07/15/17 Unknown History Active Meds: Active Medications Acetaminophen (Tylenol) 650 mg PO Q4H PRN PRN Reason: Pain MILD(1-3)/Fever >100.5/RAMÍREZ Aspirin (Halfprin Ec) 81 mg PO DAILY [facility] Atorvastatin Calcium (Lipitor) 80 mg PO QHS SHANNON Bisacodyl (Dulcolax) 10 mg MO QDAY PRN PRN Reason: Constipation unrelieved by MOM Calcitriol (Rocaltrol) 1 mcg PO QDAY [facility] Cholecalciferol (Vitamin D3) 1,000 unit PO DAILY [facility] Cinacalcet (Sensipar) 60 mg PO QDAY [facility] Dextrose (D50w (25gm) Syringe) 50 ml IV PRN PRN PRN Reason: Hypoglycemia Heparin Sodium (Porcine) (Heparin) 5,000 unit SUB-Q Q12HR [facility] Sodium Chloride (Nacl 0.9%) 100 mls @ 999 mls/hr IV JOSE PRN PRN Reason: Hypotension Insulin Aspart (Novolog) 0 units SUB-Q AC SHANNON PRN Reason: Protocol Insulin Aspart (Novolog) 0 units SUB-Q QHS SHANNON PRN Reason: Protocol Insulin Human Isoph/Insulin Regular (Novolin 70/30) 30 unit SUB-Q BID SHANNON Magnesium Hydroxide (Milk Of Magnesia) 30 ml PO Q4H PRN PRN Reason: Constipation Multivit/Ca Carb/B Cmplx/FA/Prenat (Renal Caps) 1 cap PO DAILY [facility] Ondansetron HCl (Zofran) 4 mg IV Q8H PRN PRN Reason: N/V unrelieved by Reglan Pantoprazole Sodium (Protonix) 40 mg PO QDAY [facility] Prasugrel (Effient) 10 mg PO DAILY [facility] Sevelamer Carbonate (Renvela) 2,400 mg PO TID [facility] Review of Systems Constitutional: no weight loss, no weight gain, no fever, no chills Ears, nose, mouth and throat: no nose pain, no nasal congestion, no nasal discharge Cardiovascular: shortness of breath, no chest pain, no orthopnea, no palpitations Respiratory: shortness of breath, no cough, no hemoptysis Gastrointestinal: abdominal pain, constipation, no nausea, no vomiting, no diarrhea Genitourinary Female: no pelvic pain, no flank pain, no dysuria, no urinary frequency, no urgency Rectal: no pain, no incontinence Musculoskeletal: no neck stiffness, no neck pain Integumentary: no rash, no pruritis, no redness Neurological: no paralysis, no weakness, no tingling, no seizures Psychiatric: no anxiety, no memory loss Endocrine: no cold intolerance, no heat intolerance Hematologic/Lymphatic: no easy bruising, no easy bleeding Allergic/Immunologic: no urticaria, no allergic rhinitis Exam - Vital Signs Vital signs: Vital Signs Temp Pulse Resp BP Pulse Ox 97.7 F 59 L 16 157/76 98 07/14/17 18:36 07/14/17 18:36 07/14/17 18:36 07/14/17 18:36 07/14/17 18:36 - General Appearance General appearance: well-developed, well-nourished, appears stated age EENT: PERRL, mucous membranes moist Neck: Present: neck supple, trachea midline. Absent: JVD/HJR, Masses Respiratory: Clear to Ascultation, Decreased Breath Sounds Heart: regular, normal heart rate, S1S2, no murmurs Gastrointestinal: Present: normal, other (PD catheter in place ). Absent: tenderness, distended, masses, guarding Integumentary: no rash, warm and dry Neurologic: no focal deficit, alert and oriented x3, gait normal, strength 5/5 Musculoskeletal: Absent: deformities, joint swelling Psychiatric: mood/affect appropriate, cooperative Results - Lab Results 07/14/17 18:54 07/14/17 18:54 Most recent lab results Calcium 7.5 mg/dL (8.4-10.2) L 07/14/17 18:54 Assessment and Plan 1. ESRD on PD-> now onHD 2. Malfunctioning PD catheter 3. Hyperkalemia 2/2 missed dialysis 4. AG metabolic acidosis 2/2 missed dialysis 5. Non compliance with follow ups/dialysis 6. Anemia of ESRD Plan: She has permcath in place. Will do hemodialysis to correct electrolyte abnormalities Lactulose for constipation Obtain abdominal film to study position of the PD catheter. General Surgery consult for malfunctioning PD catheter [place] on dialysis Further recommendations to follow.
[2017-07-15] MEDS ORDERED: NOVOLOG SUB-Q SCH ×2 (16:30→22:00)
[2017-07-15] MEDS ORDERED: CEPHULAC PO PRN (16:55)
[2017-07-15] MEDS ORDERED: NACL 0.9 (PRIMING MACHINE ONLY DIALYSIS) MC ONE (18:37)
[2017-07-15] MEDS ORDERED: HEPARIN SUB-Q SCH (22:00)
[2017-07-15 23:50] VITALS: BP 150/80
--- NOTE | 2017-07-16 07:42 | Discharge Summary ---
Providers - Providers Date of Admission: 07/15/17 10:15 Date of discharge: 07/15/17 Attending physician: DOMINICK WIN 07/15/17 08:35 Consult to Physician [CONS] Urgent Consulting Provider: FABIO ROSENTHAL Reason For Exam: hyperkalemia Place consult to:: NEPHROLOGY Notified:: Y Was contact made?: Yes If yes, spoke with:: OFFICE Time called:: 08:40 07/15/17 16:37 Consult to Physician [CONS] Routine Consulting Provider: MELISA NG Reason For Exam: malfunctioning PD catheter Place consult to:: DR. NG Notified:: A.S. Phone number called:: [phone] Was contact made?: Yes If yes, spoke with:: MONIQUE Time called:: 18:50 Comment:: DEE SPOKE WITH MD Primary care physician: FABIO ROSENTHAL Hospitalization Condition: Good Hospital course: left AMA on 07/15/17 evening without letting anybody know. Disposition: -07 LEFT AGAINST MED ADVICE Core Measure Documentation - Palliative Care Palliative Care/ Comfort Measures: Not Applicable - Core Measures Any of the following diagnoses?: none Exam - Constitutional Vitals: Temp Pulse Resp BP Pulse Ox 98.4 F 74 18 150/80 96 07/15/17 19:00 07/15/17 19:00 07/15/17 19:00 07/15/17 19:00 07/15/17 14:40 Plan Follow up with: FABIO ROSENTHAL MD [Primary Care Provider] - 3-5 Days
[2017-07-16] MEDS ORDERED: PROTONIX PO SCH (10:00)
[2017-07-16] MEDS ORDERED: ROCALTROL PO SCH (10:00)
[2017-07-16] MEDS ORDERED: Renal Caps PO SCH (10:00)
[2017-07-16] MEDS ORDERED: EFFIENT PO SCH (10:00)
[2017-07-16] MEDS ORDERED: SENSIPAR PO SCH (10:00)
[2017-07-16] MEDS ORDERED: NON-FORMULARY (Cinacalcet Hcl [Sensipar] 60 MG) PO SCH (10:00)
[2017-07-16] MEDS ORDERED: VITAMIN D3 PO SCH (10:00)
[2017-07-16] MEDS ORDERED: HALFPRIN EC PO SCH (10:00)
== END 2017-07-15 22:00 | disposition left against medical advice (07) | DRG 919 ==
LOC: ED 18:30 → 3A 07-15 10:15
PROVIDERS: ADMIT Internal Medicine; ATTEND Internal Medicine
PROC: 5A1D70Z Performance of Urinary Filtration, Intermittent, Less than 6 Hours Per Day (ICD-10-PCS; principal; 2017-07-15)
DX: T85.898A Other specified complication of other internal prosthetic devices, implants and grafts, initial encounter (principal); N18.6 End stage renal disease; E87.2 Acidosis; I12.0 Hypertensive chronic kidney disease with stage 5 chronic kidney disease or end stage renal disease; D63.1 Anemia in chronic kidney disease; Y83.8 Other surgical procedures as the cause of abnormal reaction of the patient, or of later complication, without mention of misadventure at the time of the procedure; E87.5 Hyperkalemia; I16.0 Hypertensive urgency; E11.22 Type 2 diabetes mellitus with diabetic chronic kidney disease; Z82.49 Family history of ischemic heart disease and other diseases of the circulatory system; Z88.1 Allergy status to other antibiotic agents; Z88.6 Allergy status to analgesic agent; Z79.82 Long term (current) use of aspirin; Z79.899 Other long term (current) drug therapy; Z79.2 Long term (current) use of antibiotics; Z79.4 Long term (current) use of insulin; Z99.2 Dependence on renal dialysis; Z91.15 Patient's noncompliance with renal dialysis; Y92.89 Other specified places as the place of occurrence of the external cause
CPT/HCPCS: 36415; 80053; 82962; 85025; 93005; 93010; 94640; 96374; 96375; 99285; J1815; J7030

== ENCOUNTER 2017-08-19 12:54 | Outpatient (CLI) | payer MEDICARE ==
[2017-08-19] MEDS ORDERED: XYLOCAINE TOPICAL 4% TP ONE ×2 (14:00→15:13)
[2017-08-19] MEDS ORDERED: AD OINTMENT TP ONE (14:17)
[2017-08-20] MEDS ORDERED: AD OINTMENT TP SCH (10:00)
== END 2017-08-19 12:55 | disposition home or self-care (01) ==
LOC: WOUND 12:54
PROVIDERS: ATTEND Nurse Practitioner
DX: E11.621 Type 2 diabetes mellitus with foot ulcer (principal); L97.412 Non-pressure chronic ulcer of right heel and midfoot with fat layer exposed; L84 Corns and callosities; E11.42 Type 2 diabetes mellitus with diabetic polyneuropathy; E11.51 Type 2 diabetes mellitus with diabetic peripheral angiopathy without gangrene; E11.22 Type 2 diabetes mellitus with diabetic chronic kidney disease; I12.0 Hypertensive chronic kidney disease with stage 5 chronic kidney disease or end stage renal disease; N18.6 End stage renal disease; Z99.2 Dependence on renal dialysis; Z98.42 Cataract extraction status, left eye; Z98.41 Cataract extraction status, right eye; Z87.891 Personal history of nicotine dependence
CPT/HCPCS: A6250

== ENCOUNTER 2017-08-31 06:03 | Day surgery (SDC) | payer MEDICARE ==
[~2017-08-31 06:03] MED LIST: ANCEF/STERILE WATER 2 GM/20 ML 2 GM/20 ML SYRINGE IV NR; NACL 0.9% 1000 ML 1,000 ML IV SCH; PEPCID PO NR
[2017-08-31] MEDS ORDERED: NACL BACTERIOSTATIC INFILTRATI ONE (06:42)
[2017-08-31 07:22] LABS: Basophils # (Auto) 0.1 K/mm3 (0.0-0.1); Basophils % (Auto) 1.1 % (0.0-1.8); Eosinophils # (Auto) 0.2 K/mm3 (0.0-0.4); Eosinophils % (Auto) 3.3 % (0.0-4.3); Lymphocytes # (Auto) 1.6 K/mm3 (1.2-5.4); Lymphocytes % (Auto) 27.3 % (13.4-35.0); Mean Corpuscular HGB Conc 30 % (30-34); Mean Corpuscular Volume 85 fl (79-97); Monocytes # (Auto) 0.9 K/mm3 (0.0-0.8); Monocytes % (Auto) 15.2 % (0.0-7.3); Platelet Count 163 K/mm3 (140-440); Red Blood Count 4.25 M/mm3 (3.65-5.03); Red Cell Distribution Width 18.5 % (13.2-15.2)
[2017-08-31 07:28] LABS: Hemoglobin 10.8 gm/dl (10.1-14.3); Mean Corpuscular Hemoglobin 25 pg (28-32)
[2017-08-31] MEDS ORDERED: NACL 0.9% 500 ML 500 ML ONE (07:37)
[2017-08-31] MEDS ORDERED: MARCAINE 0.5% INFILTRATI ONE ×2 (07:37→09:33)
[2017-08-31] MEDS ORDERED: HEPARIN 10,000 UNITS/10 ML ONE (07:37)
--- NOTE | 2017-08-31 07:43 | Anesthesia Consultation ---
Anesthesia Consult and Med Hx Date of service: 08/31/17 - Airway Anesthetic Teeth Evaluation: Partials ROM Head & Neck: Adequate Mental/Hyoid Distance: Adequate Mallampati Class: Class II Intubation Access Assessment: Probably Good - Pulmonary Exam CTA: Yes - Cardiac Exam Cardiac Exam: RRR - Pre-Operative Health Status ASA Pre-Surgery Classification: ASA3 Proposed Anesthetic Plan: General - Pulmonary Hx Smoking: Yes (QUIT 1981) Hx Sleep Apnea: No - Cardiovascular System Hx Hypertension: Yes (NO MEDS CURRENTLY) Hx Coronary Artery Disease: Yes Hx Heart Murmur: Yes - Endocrine Hx Renal Disease: Yes (stage 5) - Hematic Hx Anemia: Yes - Other Systems Hx Alcohol Use: No Hx Cancer: No
--- NOTE | 2017-08-31 07:45 | Anesthesia Day of Surgery ---
Anesthesia Day of Surgery - Day of Surgery Patient Examined: Yes Patient H&P Reviewed: Yes Patient is NPO: Yes Beta Blockers: Yes Cardiac Clearance: Yes Pulmonary Clearance: Yes
[2017-08-31 07:49] LABS: Calcium 7.7 mg/dL (8.4-10.2)
[2017-08-31] MEDS ORDERED: ZOFRAN ONE (08:23)
[2017-08-31] MEDS ORDERED: XYLOCAINE MPF 2% ONE (08:23)
[2017-08-31] MEDS ORDERED: VERSED ONE (08:24)
[2017-08-31] MEDS ORDERED: SUBLIMAZE ONE (08:24)
[2017-08-31] MEDS ORDERED: DIPRIVAN 10 MG/ML IV ONE ×2 (08:24)
[2017-08-31] MEDS ORDERED: XYLOCAINE 0.5%/ EPI 1:200,000 INFILTRATI ONE ×3 (08:37→09:33)
[2017-08-31] MEDS ORDERED: SODIUM BICARBONATE ONE (08:38)
[2017-08-31] MEDS ORDERED: ePHEDrine SULFATE ONE (09:08)
[2017-08-31] MEDS ORDERED: NACL 0.9% IR ONE (09:33)
[2017-08-31] MEDS ORDERED: SODIUM BICARBONATE IV ONE (09:34)
[2017-08-31] MEDS ORDERED: HEPARIN 10,000 UNITS/10 ML 2,000 UNIT in NACL 0.9% 500 ML 500 ML IR ONE (09:36)
--- NOTE | 2017-08-31 10:26 | Short Stay Summary ---
Short Stay Documentation Date of service: 08/31/17 Narrative H&P: See H&P - History H&P: obtained from office - Allergies and Medications Current Medications: Allergies levofloxacin [From Levaquin] Allergy (Severe, Verified 07/14/17 18:35) Itching rash lisinopril Allergy (Mild, Verified 07/14/17 18:35) Swelling coughing dry Home Medications Medication Instructions Recorded Confirmed Last Taken Type Aspirin [Adult Low Dose Aspirin EC] 81 mg PO DAILY 03/24/17 08/31/17 08/30/17 History AtorvaSTATin [Lipitor] 80 mg PO QHS 03/24/17 08/31/17 08/30/17 History B Complex W-C No.20/Folic Acid 1 mg PO DAILY 03/24/17 08/31/17 08/30/17 History [Nephrocaps Softgel] Calcitriol [Rocaltrol] 1 mcg PO QDAY 03/24/17 08/31/17 08/30/17 History Cholecalciferol Vit D3 [Vitamin D3] 1,000 units PO DAILY 03/24/17 08/31/1708/30 History Cinacalcet HCl [Sensipar] 60 mg PO DAILY 03/24/17 08/31/17 08/30/17 History Epoetin Domingo [Epogen] 20,000 unit SQ Q7D 03/24/17 08/31/17 Unknown History Gentamicin 0.1% Top Oint(Nf) 1 applic TP TID 03/24/17 08/31/17 08/30/17 History [Gentamicin 0.1% Top Oint (Nf)] Insulin NPH Hum/Reg Insulin Hm 30 unit SQ BID 03/24/17 08/31/17 08/30/17 History [HumuLIN 70-30 Vial] Midodrine [Proamatine] 5 mg PO TID PRN 03/24/17 08/31/17 1 Month Ago History ~07/31/17 Pantoprazole [Protonix] 40 mg PO QDAY 03/24/17 08/31/17 08/30/17 History Prasugrel [Effient] 10 mg PO DAILY 03/24/17 08/31/17 08/30/17 History Sevelamer HCl [Renagel] 2,400 mg PO TID 03/24/17 08/31/17 08/30/17 History Active Medications Famotidine (Pepcid) 20 mg PO PREOP NR Stop: 08/31/17 23:59 Last Admin: 08/31/17 06:52 Dose: 20 mg Cefazolin Sodium (Ancef/Sterile Water 2 Gm/20 Ml) 2 gm in 20 mls @ 80 mls/hr IV PREOP NR PRN Reason: Protocol Stop: 08/31/17 21:00 Sodium Chloride (Nacl 0.9% 1000 Ml) 1,000 mls @ 42 mls/hr IV DIRECT SHANNON Stop: 08/31/17 21:00 Last Admin: 08/31/17 06:55 Dose: 42 mls/hr - Brief post op/procedure progress note Date of procedure: 08/31/17 Pre-op diagnosis: End-Stage Renal Disease Post-op diagnosis: same Procedure: Creation of Left Brachiobasilic Arteriovenous Fistula Anesthesia: MAC, local Surgeon: KAI QUINTEROS Estimated blood loss: minimal Pathology: none Condition: stable - Disposition Condition at discharge: Good Disposition: DC-01 TO HOME OR SELFCARE Short Stay Discharge Plan Activity: other (no heavy lifting with left arm) Wound: open to air, keep clean and dry, other (okay to wash the wound with soap and water but do not soak in water) Follow up with: KAI QUINTEROS MD [Staff Physician] - 14 Days Prescriptions: HYDROcodone/APAP 7.5-325 [[place] 7.5/325] 1 each PO Q6HR PRN #40 tablet PRN Reason: Pain
--- NOTE | 2017-08-31 10:28 | Operative Report ---
Operative Report Operative Report: Date of procedure: 08/31/2017 Pre-operative diagnosis: End-stage Renal Disease Post-operative diagnosis: End-stage Renal Disease Procedure(s): Creation of Left Brachial Artery to Basilic Arteriovenous Fistula Surgeon: Tyler Larios MD Credit Collection Associate: None Anesthesia: Local/MAC EBL: Minimal Counts: Correct Complications: None Condition: Stable Findings: Successful creation of left brachial basilic arteriovenous fistula with palpable thrill at the completion of the case. Specimen: None Indication: The patient is a 62-year-old female with a history of end-stage renal disease with a previous creation of a left arm AV graft. She is currently on peritoneal dialysis however she needs to be converted to hemodialysis. She had a vein mapping that demonstrated she is an adequate candidate for creation of a left arm AV fistula. She was given the risks, benefits, and alternative procedures and consented to the procedure. Description of Procedure: The patient was brought to the operating room and laid in supine position after general endotracheal anesthesia was administered the patient was prepped and draped in normal sterile fashion. After anesthetizing the skin a transverse incision was created just below the antecubital crease. Dissection was carried down to the the basilic vein using sharp dissection. The vein was dissected out both proximally and distally and suture ligated and divided distally. I then ran a 3 Heath proximally in the vein, to ensure patency of the vein. I then flushed the vein with heparinized saline and controlled flow with a bulldog clamp. I then dissected out the brachial artery through this incision circumferentially both proximal and distal and controlled th artery with vessel loops. I placed the vessel loops on tension, controlling the flow through the artery, and created an arteriotomy using an 11 blade and Salmon scissors. I created an end to side anastomosis between the basilic vein and brachial artery using a 6-0 Prolene in running fashion. Prior to completing the anastomosis I flushed the artery both proximally and distally and then advanced a 3 Heath proximally to break the spasm in the artery. I completed the anastomosis and removed all vessel loops allowing flow into the fistula which had an excellent thrill. I achieved hemostasis with a combination of direct pressure and electrocautery. Once hemostasis was achieved I anesthetized the wound with Marcaine. I closed the wound in 2 layers using 3-0 Vicryl in a running fashion to close the deep dermal layer and 4-0 Monocryl in a running fashion in the subcuticular layer. I dressed the wound with Surgicel. The patient tolerated the procedure well, all sponge needle and instrument counts were correct. The patient was taken to recovery in stable condition.
[2017-08-31] MEDS ORDERED: APRESOLINE ONE (11:04)
--- NOTE | 2017-08-31 14:36 | Post Anesthesia Evaluation ---
- Post Anesthesia Evaluation Patient Participated: Yes Airway Patent: Yes Stable Respiratory Function: Yes Nausea/Vomiting: No Temp > 96.8F: Yes Pain Manageable: Yes Adequeate Hydration: Yes Anesthesia Complications: No
[2017-08-31 20:09] VITALS: BP 143/69
== END 2017-08-31 13:45 | disposition home or self-care (01) ==
LOC: OR 06:03
PROVIDERS: ATTEND Surgery Vascular Surgery
DX: I12.0 Hypertensive chronic kidney disease with stage 5 chronic kidney disease or end stage renal disease (principal); E11.22 Type 2 diabetes mellitus with diabetic chronic kidney disease; N18.6 End stage renal disease; E78.00 Pure hypercholesterolemia, unspecified; E11.51 Type 2 diabetes mellitus with diabetic peripheral angiopathy without gangrene; Z98.890 Other specified postprocedural states; Z79.82 Long term (current) use of aspirin; Z79.899 Other long term (current) drug therapy; Z79.4 Long term (current) use of insulin; I25.10 Atherosclerotic heart disease of native coronary artery without angina pectoris; Z87.891 Personal history of nicotine dependence; Z88.1 Allergy status to other antibiotic agents; Z88.8 Allergy status to other drugs, medicaments and biological substances
CPT/HCPCS: 36415; 36821; 80048; 82962; 85025; J0360; J0690; J1644; J2250; J2405; J2704; J3010; J7030; J7040

== ENCOUNTER 2017-09-20 16:08 | Inpatient (IN) | payer MEDICARE ==
[2017-09-20 16:57] LABS: Basophils # (Auto) 0.1 K/mm3 (0.0-0.1); Basophils % (Auto) 0.7 % (0.0-1.8); Eosinophils # (Auto) 0.1 K/mm3 (0.0-0.4); Eosinophils % (Auto) 1.4 % (0.0-4.3); Hematocrit 24.7 % (30.3-42.9); Hemoglobin 7.6 gm/dl (10.1-14.3); Lymphocytes # (Auto) 1.2 K/mm3 (1.2-5.4); Lymphocytes % (Auto) 14.2 % (13.4-35.0); Mean Corpuscular HGB Conc 31 % (30-34); Mean Corpuscular Hemoglobin 27 pg (28-32); Mean Corpuscular Volume 86 fl (79-97); Monocytes # (Auto) 1.1 K/mm3 (0.0-0.8); Monocytes % (Auto) 12.5 % (0.0-7.3); Platelet Count 362 K/mm3 (140-440); Red Blood Count 2.89 M/mm3 (3.65-5.03); Red Cell Distribution Width 19.6 % (13.2-15.2)
[2017-09-20 17:16] LABS: Creatine Kinase MB 2.9 ng/mL (0.0-4.0)
[2017-09-20 17:17] LABS: Calcium 7.9 mg/dL (8.4-10.2)
[2017-09-20 17:34] LABS: Chol/HDL Ratio 2.47 %
[2017-09-20] MEDS ORDERED: NACL 0.9% 500 ML 500 ML IV ONE (17:41)
--- NOTE | 2017-09-20 17:42 | Emergency Department Report ---
HPI - General Chief Complaint: Recheck/Abnormal Lab/Rx Time Seen by Provider: 09/20/17 17:31 - HPI HPI: Dawson 24 The patient is a 62-year-old female presenting with chief complaint of anemia. She was sent to the ED by her warehouse associate for blood transfusion after labs revealed the patient had a hemoglobin of 6.0. The patient states she's felt "weak" for the past 2 weeks. Patient also admits to nausea vomiting and diarrhea for the same amount of time. Patient denies bright red blood per rectum or melena. The patient states she received dialysis today for the entire 3.5 hours Location: [See above] Duration: 2 weeks Quality: Weakness Severity: Moderate Modifying factors: [see above] Context: [see above] Mode of transportation: [not driving] ED Past Medical Hx - Past Medical History Previous Medical History?: Yes Hx Hypertension: Yes (NO MEDS CURRENTLY) Hx Diabetes: Yes Hx Renal Disease: Yes (stage 5, M, W, F) Additional medical history: leaky valve - Surgical History Past Surgical History?: Yes Hx Coronary Stent: Yes Additional Surgical History: AV graft L. arm. Perm cath to right chest. PD cath to LLQ - Family History Family history: no significant - Social History Smoking Status: Never Smoker Substance Use Type: None - Medications Home Medications: Home Medications Medication Instructions Recorded Confirmed Last Taken Type Aspirin [Adult Low Dose Aspirin EC] 81 mg PO DAILY 03/24/17 08/31/17 08/30/17 History AtorvaSTATin [Lipitor] 80 mg PO QHS 03/24/17 08/31/17 08/30/17 History B Complex W-C No.20/Folic Acid 1 mg PO DAILY 03/24/17 08/31/17 08/30/17 History [Nephrocaps Softgel] Calcitriol [Rocaltrol] 1 mcg PO QDAY 03/24/17 08/31/17 08/30/17 History Cholecalciferol Vit D3 [Vitamin D3] 1,000 units PO DAILY 03/24/17 08/31/1708/30 History Cinacalcet HCl [Sensipar] 60 mg PO DAILY 03/24/17 08/31/17 08/30/17 History Epoetin Domingo [Epogen] 20,000 unit SQ Q7D 03/24/17 08/31/17 Unknown History Gentamicin 0.1% Top Oint(Nf) 1 applic TP TID 03/24/17 08/31/17 08/30/17 History [Gentamicin 0.1% Top Oint (Nf)] Insulin NPH Hum/Reg Insulin Hm 30 unit SQ BID 03/24/17 08/31/17 08/30/17 History [HumuLIN 70-30 Vial] Midodrine [Proamatine] 5 mg PO TID PRN 03/24/17 08/31/17 1 Month Ago History ~07/31/17 Pantoprazole [Protonix TAB] 40 mg PO QDAY 03/24/17 08/31/17 08/30/17 History Prasugrel [Effient] 10 mg PO DAILY 03/24/17 08/31/17 08/30/17 History Sevelamer HCl [Renagel] 2,400 mg PO TID 03/24/17 08/31/17 08/30/17 History HYDROcodone/APAP 7.5-325 [[place] 1 each PO Q6HR PRN #40 tablet 08/31/17 Unknown Rx 7.5/325] ED Review of Systems ROS: Stated complaint: LOW BLOOD Other details as noted in HPI Constitutional: weakness Gastrointestinal: nausea, vomiting, diarrhea. denies: melena, hematochezia Physical Exam - Physical Exam Vital Signs: Vital Signs 09/20/17 16:16 Temperature 98.3 F Pulse Rate 63 Respiratory 18 Rate Blood Pressure 147/63 O2 Sat by Pulse 96 Oximetry Physical Exam: GENERAL: The patient is well-developed well-nourished female lying on stretcher not appearing to be in acute distress. [] HEENT: Normocephalic. Atraumatic. Extraocular motions are intact. Patient has moist mucous membranes. NECK: Supple. No meningitic signs are noted. There is no adenopathy noted. CHEST/LUNGS: Clear to auscultation. There is no respiratory distress noted. HEART/CARDIOVASCULAR: Regular. There is no tachycardia. There is a 3/6 systolic murmur. ABDOMEN: Abdomen is soft, nontender. Patient has normal bowel sounds. There is no abdominal distention. SKIN: There is no rash. There is no edema. There is no diaphoresis. NEURO: The patient is awake, alert, and oriented. The patient is cooperative. The patient has normal speech MUSCULOSKELETAL: There is no evidence of acute injury. ED Course Vital Signs 09/20/17 16:16 Temperature 98.3 F Pulse Rate 63 Respiratory 18 Rate Blood Pressure 147/63 O2 Sat by Pulse 96 Oximetry ED Medical Decision Making - Lab Data Result diagrams: 09/20/17 16:35 09/20/17 16:35 Laboratory Tests 09/20/17 09/20/17 09/20/17 16:35 16:35 16:35 WBC 8.7 RBC 2.89 L Hgb 7.6 L Hct 24.7 L MCV 86 MCH 27 L MCHC 31 RDW 19.6 H Plt Count 362 Lymph % (Auto) 14.2 Rock % (Auto) 12.5 H Eos % (Auto) 1.4 Baso % (Auto) 0.7 Lymph # 1.2 Rock # 1.1 H Eos # 0.1 Baso # 0.1 Seg Neutrophils % 71.2 H Seg Neutrophils # 6.2 Sodium 140 Potassium 3.8 Chloride 92.9 L Carbon Dioxide 29 Anion Gap 22 BUN 22 H Creatinine 4.0 H Estimated GFR 14 BUN/Creatinine Ratio 6 Glucose 198 H Calcium 7.9 L Total Creatine Kinase 108 CK-MB (CK-2) 2.9 CK-MB (CK-2) Rel Index 2.6 Troponin T 0.174 H* Triglycerides 113 Cholesterol 131 LDL Cholesterol Direct 56 HDL Cholesterol 53 Cholesterol/HDL Ratio 2.47 Blood Type A POSITIVE Antibody Screen Negative - Differential Diagnosis symptomatic anemia Critical care attestation.: If time is entered above; I have spent that time in minutes in the direct care of this critically ill patient, excluding procedure time. ED Disposition Clinical Impression: End stage renal disease, Symptomatic anemia Disposition: OP ADMIT IP TO THIS HOSP Is pt being admited?: Yes Does the pt Need Aspirin: No Condition: Fair Referrals: PRIMARY CARE, [Primary Care Provider] - 3-5 Days Time of Disposition: 17:42 (hospitalist notified (Dr. Jerome))
[2017-09-20] MEDS ORDERED: MILK OF MAGNESIA PO PRN (22:22)
[2017-09-20] MEDS ORDERED: D50W (25GM) Syringe IV PRN (22:22)
[2017-09-20] MEDS ORDERED: PERCOCET 5/325 PO PRN (22:22)
[2017-09-20] MEDS ORDERED: ZOFRAN IV PRN (22:22)
[2017-09-20] MEDS ORDERED: DULCOLAX PR PRN (22:22)
[2017-09-20] MEDS ORDERED: TYLENOL PO PRN (22:22)
--- NOTE | 2017-09-20 22:25 | History and Physical Report ---
History of Present Illness Date of examination: 09/20/17 Date of admission: 09/20/17 20:13 History of present illness: 62-year-old woman with a history of hypertension, diabetes, end-stage renal disease was sent to the emergency room for evaluation, her blood count was found to be low on labs at dialysis. Complaining of generalized weakness Review Of Systems: Constitutional: no weight loss Ears, eyes, nose, mouth and throat: no nasal congestion, no nasal discharge, no sinus pressure, blurry vision, diplopia Neck: No neck pain or rigidity. Cardiovascular: No chest pain, palpitations Respiratory: No shortness of breath, cough Gastrointestinal: No abdominal pain, hematochezia Genitourinary : no dysuria, frequency , hematuria Musculoskeletal: no muscle ache Integumentary: no rash, no pruritis Neurological: no parathesias, focal weakness Endocrine: no cold or heat intolerance, no polyuria or polydipsia Hematologic/Lymphatic: no easy bruising, no easy bleeding, no gland swelling Allergic/Immunologic: no urticaria, no angioedema. PAST MEDICAL HISTORY:hypertension, diabetes, end-stage renal disease PAST SURGICAL HISTORY: AV fistula, PD catheter FAMILY HISTORY:hypertension, diabetes SOCIAL HISTORY: Denies alcohol, tobacco, drugs Medications and Allergies Allergies Allergy/AdvReac Type Severity Reaction Status Date / Time levofloxacin [From Levaquin] Allergy Severe Itching Verified 07/14/17 18:35 lisinopril Allergy Mild Swelling Verified 07/14/17 18:35 Home Medications Medication Instructions Recorded Confirmed Last Taken Type Aspirin [Adult Low Dose Aspirin EC] 81 mg PO DAILY 03/24/17 09/20/17 09/19/17 History AtorvaSTATin [Lipitor] 80 mg PO QHS 03/24/17 09/20/17 09/19/17 History B Complex W-C No.20/Folic Acid 1 mg PO DAILY 03/24/17 09/20/17 09/19/17 History [Nephrocaps Softgel] Cholecalciferol Vit D3 [Vitamin D3] 1,000 units PO DAILY 03/24/17 09/20/1709/19 History Epoetin Domingo [Epogen] 20,000 unit SQ Q7D 03/24/17 09/20/17 09/19/17 History Insulin NPH Hum/Reg Insulin Hm 30 unit SQ BID 03/24/17 09/20/1718 History [HumuLIN 70-30 Vial] Midodrine [Proamatine] 5 mg PO TID PRN 03/24/17 09/20/17 09/19/17 History Pantoprazole [Protonix TAB] 40 mg PO QDAY 03/24/17 09/20/17 09/19/17 History Exam - Physical Exam Narrative exam: Gen. appearance: Patient lying in bed in no acute distress HEENT: Normocephalic/atraumatic, pupils equal round reactive to light, extra occular movement intact, no scleral icterus, no JVD or thyromegaly or nodule, neck is supple, mucous membrane moist, no erythema or exudate Heart: S1-S2, regular rate and rhythm Lungs: Clear to auscultation bilateral breathing comfortable Abdomen: Positive bowel sounds, nontender, nondistended, no organomegaly Extremities: No edema, cyanosis, clubbing Neuro:: Oriented 3 , cranial nerves II-12 intact, speech, motor intact Skin: No extremity ulcer No rash, nodules, warm dry - Constitutional Vitals: Temp Pulse Resp BP Pulse Ox 98.4 F 68 17 123/54 94 09/20/17 20:57 09/20/17 21:30 09/20/17 21:30 09/20/17 21:30 09/20/17 21:30 Results - Labs CBC & Chem 7: 09/21/17 05:13 09/21/17 05:13 Labs: Abnormal lab results 09/20/17 09/20/17 09/20/17 Range/Units 16:35 16:35 16:35 RBC 2.89 L (3.65-5.03) M/mm3 Hgb 7.6 L (10.1-14.3) gm/dl Hct 24.7 L (30.3-42.9) % MCH 27 L (28-32) pg RDW 19.6 H (13.2-15.2) % Alexander % (Auto) 12.5 H (0.0-7.3) % Alexander # 1.1 H (0.0-0.8) K/mm3 Seg Neutrophils % 71.2 H (40.0-70.0) % Chloride 92.9 L (98-107) mmol/L BUN 22 H (7-17) mg/dL Creatinine 4.0 H (0.7-1.2) mg/dL Glucose 198 H (65-100) mg/dL Calcium 7.9 L (8.4-10.2) mg/dL Troponin T 0.174 H* (0.00-0.029) ng/mL Crossmatch See Detail Assessment and Plan Assessment Symptomatic anemia Abnormal cardiac enzymes End-stage renal disease on dialysis Hypertension Diabetes type 2 Lower extrmity ulcer Plan Admit to medicine Transfuse packed red blood cells, check cardiac enzymes, echo Check fingerstick and initiate insulin sliding scale continue outpatient medications, wound care DVT prophylaxis
[2017-09-21] MEDS ORDERED: PROAMATINE PO PRN (03:16)
[2017-09-21 05:58] LABS: Basophils # (Auto) 0.1 K/mm3 (0.0-0.1); Basophils % (Auto) 0.6 % (0.0-1.8); Eosinophils # (Auto) 0.2 K/mm3 (0.0-0.4); Eosinophils % (Auto) 2.2 % (0.0-4.3); Hematocrit 25.2 % (30.3-42.9); Lymphocytes # (Auto) 1.3 K/mm3 (1.2-5.4); Lymphocytes % (Auto) 14.2 % (13.4-35.0); Mean Corpuscular HGB Conc 32 % (30-34); Mean Corpuscular Hemoglobin 27 pg (28-32); Mean Corpuscular Volume 86 fl (79-97); Monocytes # (Auto) 1.4 K/mm3 (0.0-0.8); Monocytes % (Auto) 15.4 % (0.0-7.3); Platelet Count 334 K/mm3 (140-440); Red Blood Count 2.95 M/mm3 (3.65-5.03); Red Cell Distribution Width 18.6 % (13.2-15.2)
[2017-09-21 06:17] LABS: Calcium 7.6 mg/dL (8.4-10.2)
[2017-09-21 06:18] LABS: Creatine Kinase MB 2.4 ng/mL (0.0-4.0)
[2017-09-21] MEDS ORDERED: HALFPRIN EC PO SCH (10:00)
[2017-09-21] MEDS ORDERED: VITAMIN D3 PO SCH (10:00)
[2017-09-21] MEDS ORDERED: PROTONIX PO SCH (10:00)
[2017-09-21] MEDS ORDERED: Renal Caps PO SCH (10:00)
--- NOTE | 2017-09-21 14:40 | Progress Note ---
Assessment and Plan - Patient Problems (1) End stage renal disease Current Visit: Yes Status: Acute (2) Symptomatic anemia Current Visit: Yes Status: Acute (3) Hyperkalemia Current Visit: No Status: Acute Subjective Date of service: 09/21/17 Objective - Constitutional Vitals: Vital Signs - 12hr 09/21/17 07:26 Temperature 99.1 F Pulse Rate 69 Respiratory 16 Rate Blood Pressure 140/67 O2 Sat by Pulse 94 Oximetry General appearance: Present: no acute distress, well-nourished - EENT Eyes: PERRL, EOM intact ENT: hearing intact, clear oral mucosa Ears: bilateral: normal - Neck Neck: supple, normal ROM - Respiratory Respiratory effort: normal Respiratory: bilateral: CTA - Breasts Breasts: normal - Cardiovascular Rhythm: regular Heart Sounds: Present: S1 & S2. Absent: gallop, rub Extremities: pulses intact, No edema, normal color, Full ROM - Gastrointestinal General gastrointestinal: Present: soft, non-tender, non-distended, normal bowel sounds - Genitourinary Female genitourinary: normal - Integumentary Integumentary: clear, warm, dry - Musculoskeletal Musculoskeletal: 1, strength equal bilaterally - Neurologic Neurologic: moves all extremities - Psychiatric Psychiatric: memory intact, appropriate mood/affect, intact judgment & insight - Labs CBC & Chem 7: 09/21/17 05:13 09/21/17 05:13 Labs: Abnormal lab results 09/20/17 09/20/17 09/20/17 Range/Units 16:35 16:35 16:35 RBC 2.89 L (3.65-5.03) M/mm3 Hgb 7.6 L (10.1-14.3) gm/dl Hct 24.7 L (30.3-42.9) % MCH 27 L (28-32) pg RDW 19.6 H (13.2-15.2) % [place] % (Auto) 12.5 H (0.0-7.3) % [place] # 1.1 H (0.0-0.8) K/mm3 Seg Neutrophils % 71.2 H (40.0-70.0) % Chloride 92.9 L (98-107) mmol/L BUN 22 H (7-17) mg/dL Creatinine 4.0 H (0.7-1.2) mg/dL Glucose 198 H (65-100) mg/dL POC Glucose (70-105) Calcium 7.9 L (8.4-10.2) mg/dL Troponin T 0.174 H* (0.00-0.029) ng/mL Crossmatch See Detail 09/20/17 09/21/17 09/21/17 Range/Units 22:50 05:13 05:13 RBC 2.95 L (3.65-5.03) M/mm3 Hgb 8.0 L (10.1-14.3) gm/dl Hct 25.2 L (30.3-42.9) % MCH 27 L (28-32) pg RDW 18.6 H (13.2-15.2) % [place] % (Auto) 15.4 H (0.0-7.3) % [place] # 1.4 H (0.0-0.8) K/mm3 Seg Neutrophils % (40.0-70.0) % Chloride 92.9 L (98-107) mmol/L BUN 27 H (7-17) mg/dL Creatinine 5.1 H (0.7-1.2) mg/dL Glucose 307 H (65-100) mg/dL POC Glucose 318 H (70-105) Calcium 7.6 L (8.4-10.2) mg/dL Troponin T (0.00-0.029) ng/mL Crossmatch 09/21/17 09/21/17 09/21/17 Range/Units 05:13 06:27 11:43 RBC (3.65-5.03) M/mm3 Hgb (10.1-14.3) gm/dl Hct (30.3-42.9) % MCH (28-32) pg RDW (13.2-15.2) % [place] % (Auto) (0.0-7.3) % [place] # (0.0-0.8) K/mm3 Seg Neutrophils % (40.0-70.0) % Chloride (98-107) mmol/L BUN (7-17) mg/dL Creatinine (0.7-1.2) mg/dL Glucose (65-100) mg/dL POC Glucose 321 H 233 H (70-105) Calcium (8.4-10.2) mg/dL Troponin T 0.152 H* (0.00-0.029) ng/mL Crossmatch
[2017-09-21 16:53] VITALS: BP 123/61
--- NOTE | 2017-09-21 19:03 | Discharge Summary ---
Providers - Providers Date of Admission: 09/20/17 20:13 Date of discharge: 09/21/17 Attending physician: JAIRO LAKHANI 09/21/17 06:55 Consult to Wound/ET Nurse [CONS] Routine Reason For Exam: wound eval Primary care physician: DEPUTY FIRE MARSHAL Hospitalization Condition: Fair Disposition: DC-30 STILL A PATIENT - Discharge Diagnoses (1) End stage renal disease Status: Acute (2) Symptomatic anemia Status: Acute (3) Hyperkalemia Status: Acute Exam - Constitutional Vitals: Temp Pulse Resp BP Pulse Ox 97.9 F 75 20 123/61 100 09/21/17 15:36 09/21/17 15:36 09/21/17 15:36 09/21/17 15:36 09/21/17 16:47 Plan Follow up with: PRIMARY MD OTONIEL [Primary Care Provider] - 3-5 Days
--- NOTE | 2017-09-22 15:57 | Event Note ---
Date: 09/22/[address] temple/primary care provider, and i spoke directly with him regarding the result of the echocardiogram. he indicated he would contact the patient and arrange for a lena.
== END 2017-09-21 19:58 | disposition home or self-care (01) | DRG 811 ==
LOC: ED 16:08 → 3A 20:13
PROVIDERS: ADMIT Internal Medicine; ATTEND Internal Medicine
PROC: 30233N1 Transfusion of Nonautologous Red Blood Cells into Peripheral Vein, Percutaneous Approach (ICD-10-PCS; principal; 2017-09-20)
DX: D64.9 Anemia, unspecified (principal); N18.6 End stage renal disease; L97.909 Non-pressure chronic ulcer of unspecified part of unspecified lower leg with unspecified severity; I12.0 Hypertensive chronic kidney disease with stage 5 chronic kidney disease or end stage renal disease; E11.22 Type 2 diabetes mellitus with diabetic chronic kidney disease; E87.5 Hyperkalemia; Z99.2 Dependence on renal dialysis; Z79.82 Long term (current) use of aspirin; Z79.899 Other long term (current) drug therapy; Z79.4 Long term (current) use of insulin; Z82.49 Family history of ischemic heart disease and other diseases of the circulatory system; Z83.3 Family history of diabetes mellitus; Z88.1 Allergy status to other antibiotic agents; Z88.6 Allergy status to analgesic agent; Z95.828 Presence of other vascular implants and grafts
CPT/HCPCS: 36415; 80048; 80061; 82550; 82553; 82962; 84484; 85025; 86850; 86900; 86901; 86920; 93005; 93010; 93306; J1815; J7040; P9016

== ENCOUNTER 2017-09-30 09:58 | Outpatient (CLI) | payer MEDICARE ==
[2017-09-30] MEDS ORDERED: XYLOCAINE TOPICAL 4% TP ONE (10:18)
== END 2017-09-30 09:59 | disposition home or self-care (01) ==
LOC: WOUND 09:58
PROVIDERS: ATTEND Nurse Practitioner
DX: E11.621 Type 2 diabetes mellitus with foot ulcer (principal); L97.412 Non-pressure chronic ulcer of right heel and midfoot with fat layer exposed; E11.22 Type 2 diabetes mellitus with diabetic chronic kidney disease; E11.42 Type 2 diabetes mellitus with diabetic polyneuropathy; I12.0 Hypertensive chronic kidney disease with stage 5 chronic kidney disease or end stage renal disease; N18.6 End stage renal disease; L84 Corns and callosities; Z99.2 Dependence on renal dialysis; Z87.891 Personal history of nicotine dependence
CPT/HCPCS: 11055

== ENCOUNTER 2017-10-14 09:42 | Outpatient (CLI) | payer MEDICARE ==
[2017-10-14] MEDS ORDERED: XYLOCAINE TOPICAL 4% TP ONE (09:58)
== END 2017-10-14 09:43 | disposition home or self-care (01) ==
LOC: WOUND 09:42
PROVIDERS: ATTEND Nurse Practitioner
DX: E11.621 Type 2 diabetes mellitus with foot ulcer (principal); L97.412 Non-pressure chronic ulcer of right heel and midfoot with fat layer exposed; E11.42 Type 2 diabetes mellitus with diabetic polyneuropathy; E11.22 Type 2 diabetes mellitus with diabetic chronic kidney disease; I12.0 Hypertensive chronic kidney disease with stage 5 chronic kidney disease or end stage renal disease; N18.6 End stage renal disease; L84 Corns and callosities; Z98.62 Peripheral vascular angioplasty status; Z98.42 Cataract extraction status, left eye; Z98.41 Cataract extraction status, right eye; Z87.891 Personal history of nicotine dependence
CPT/HCPCS: 11055

== ENCOUNTER 2017-10-26 09:19 | Outpatient (CLI) | payer MEDICARE ==
--- NOTE | 2017-10-26 14:45 | Cat Scan Report ---
CT ABDOMEN PELVIS WITHOUT CONTRAST: HISTORY: Abdominal mass. COMPARISON: none. TECHNIQUE: Helical CT in 1.25mm intervals without IV contrast. Sagittal and coronal reconstructions. FINDINGS: Lung bases: Normal. Liver: 2 cm or right hepatic lobe cyst is identified. No evidence for parenchymal liver disease or mass. Biliary system: Normal. Pancreas: Normal. Spleen: Normal. Kidneys/ureters/bladder: Both kidneys are slightly atrophic measuring 7-8 cm in length. No evidence for cystic disease, large mass or hydronephrosis. Renal vascular calcifications are noted. Adrenal glands: Normal. Aorta: Normal caliber. Diffuse aortic and large vessel calcifications are noted. Intestines: No evidence for obstruction or focal inflammation. Appendix: Not confidently identified, correlate with surgical history. Pelvic viscera: Normal. Ascites: Small perihepatic and pelvic ascites is identified. A peritoneal dialysis catheter terminates in the right side of the pelvis. There does appear to be a fluid collection along the anterior abdominal wall measuring up to 8.9 x 2.8 cm in axial plane. This appears to surround the dialysis catheter. This may represent a pseudocyst. This may also represent the abdominal mass mentioned in the clinical history. Abscess is thought less likely. Adenopathy: None. Musculoskeletal: Normal. IMPRESSION: No suspicious abdominal mass is identified on noncontrast CT. There is a fluid collection with intimate association to the peritoneal dialysis catheter which probably represents a pseudocyst. This may represent the abdominal mass mentioned in the clinical history. Please correlate with the patient. Small ascites. Chronic renal parenchymal disease. Diffuse atherosclerotic disease. 2 cm right hepatic lobe cyst.
== END 2017-10-26 09:20 | disposition home or self-care (01) ==
LOC: CT 09:19
PROVIDERS: ATTEND Surgery
DX: N26.1 Atrophy of kidney (terminal) (principal); K76.89 Other specified diseases of liver; I70.0 Atherosclerosis of aorta; R18.8 Other ascites
CPT/HCPCS: 74176

== ENCOUNTER 2017-10-28 10:47 | Outpatient (CLI) | payer MEDICARE ==
[2017-10-28] MEDS ORDERED: XYLOCAINE TOPICAL 2% 5ML ONE (10:57)
[2017-10-28] MEDS ORDERED: XYLOCAINE TOPICAL 2% 5ML TP ONE (11:00)
[2017-10-28] MEDS ORDERED: AD OINTMENT TP ONE (11:25)
== END 2017-10-28 10:48 | disposition home or self-care (01) ==
LOC: WOUND 10:47
PROVIDERS: ATTEND Nurse Practitioner
DX: E11.621 Type 2 diabetes mellitus with foot ulcer (principal); L97.412 Non-pressure chronic ulcer of right heel and midfoot with fat layer exposed; E11.42 Type 2 diabetes mellitus with diabetic polyneuropathy; E11.22 Type 2 diabetes mellitus with diabetic chronic kidney disease; I12.0 Hypertensive chronic kidney disease with stage 5 chronic kidney disease or end stage renal disease; N18.6 End stage renal disease; L84 Corns and callosities; Z99.2 Dependence on renal dialysis; Z98.42 Cataract extraction status, left eye; Z98.41 Cataract extraction status, right eye; Z87.891 Personal history of nicotine dependence
CPT/HCPCS: 11042; 11055; G0463; A6250

== ENCOUNTER 2017-11-16 06:17 | Day surgery (SDC) | payer MEDICARE ==
[~2017-11-16 06:17] MED LIST changes: -PEPCID PO NR
--- NOTE | 2017-11-16 10:27 | Anesthesia Consultation ---
Anesthesia Consult and Med Hx Date of service: 11/16/17 - Airway Anesthetic Teeth Evaluation: Good ROM Head & Neck: Adequate Mental/Hyoid Distance: Adequate Mallampati Class: Class I Intubation Access Assessment: Good - Pulmonary Exam CTA: Yes - Cardiac Exam Cardiac Exam: RRR - Pre-Operative Health Status ASA Pre-Surgery Classification: ASA4 Proposed Anesthetic Plan: General, IV Sedation - Pulmonary Hx Smoking: Yes (QUIT 1981) - Cardiovascular System Hx Hypertension: Yes Hx Coronary Artery Disease: Yes Hx Heart Murmur: Yes - Central Nervous System Hx Psychiatric Problems: No - Gastrointestinal Hx Gastroesophageal Reflux Disease: Yes - Endocrine Hx End Stage Renal Disease: Yes Hx Insulin Dependent Diabetes: Yes - Hematic Hx Anemia: Yes - Other Systems Hx Cancer: No
--- NOTE | 2017-11-16 10:27 | Anesthesia Day of Surgery ---
Anesthesia Day of Surgery - Day of Surgery Patient Examined: Yes Patient H&P Reviewed: Yes Patient is NPO: Yes
[2017-11-16] MEDS ORDERED: D50W (25GM) Syringe IV PRN (10:32)
[2017-11-16 10:34] LABS: Calcium 8.7 mg/dL (8.4-10.2)
[2017-11-16 10:39] LABS: Basophils # (Auto) 0.1 K/mm3 (0.0-0.1); Basophils % (Auto) 1.4 % (0.0-1.8); Eosinophils # (Auto) 0.2 K/mm3 (0.0-0.4); Eosinophils % (Auto) 3.9 % (0.0-4.3); Hematocrit 31.1 % (30.3-42.9); Lymphocytes # (Auto) 1.9 K/mm3 (1.2-5.4); Lymphocytes % (Auto) 31.7 % (13.4-35.0); Mean Corpuscular HGB Conc 29 % (30-34); Mean Corpuscular Hemoglobin 25 pg (28-32); Mean Corpuscular Volume 85 fl (79-97); Monocytes # (Auto) 0.8 K/mm3 (0.0-0.8); Monocytes % (Auto) 13.4 % (0.0-7.3); Platelet Count 195 K/mm3 (140-440); Red Blood Count 3.65 M/mm3 (3.65-5.03); Red Cell Distribution Width 19.4 % (13.2-15.2)
[2017-11-16] MEDS ORDERED: VERSED IV NR (11:00)
[2017-11-16] MEDS ORDERED: DIPRIVAN 10 MG/ML IV ONE (12:21)
[2017-11-16] MEDS ORDERED: SUBLIMAZE ONE (12:21)
[2017-11-16] MEDS ORDERED: XYLOCAINE MPF 2% ONE (12:21)
[2017-11-16] MEDS ORDERED: MARCAINE 0.25% INFILTRATI ONE ×2 (12:28→13:03)
[2017-11-16] MEDS ORDERED: HEPARIN 10,000 UNITS/10 ML 2,000 UNIT in NACL 0.9% 500 ML 500 ML IR ONE (12:28)
[2017-11-16] MEDS ORDERED: NACL 0.9% IR ONE ×2 (12:28)
[2017-11-16] MEDS ORDERED: ePHEDrine SULFATE ONE (13:00)
[2017-11-16] MEDS ORDERED: NACL ONE (13:01)
[2017-11-16] MEDS ORDERED: PROTAMINE SULFATE ONE (13:01)
[2017-11-16] MEDS ORDERED: PAPAVERINE ONE (13:01)
[2017-11-16] MEDS ORDERED: THROMBIN (BOVINE) TP ONE (13:02)
[2017-11-16] MEDS ORDERED: HEPARIN 10,000 UNITS/10 ML ONE (13:02)
[2017-11-16] MEDS ORDERED: RIFADIN ONE (13:02)
[2017-11-16] MEDS ORDERED: GELFOAM TP ONE (13:02)
[2017-11-16] MEDS ORDERED: SODIUM BICARBONATE ONE (13:02)
[2017-11-16] MEDS ORDERED: NITROGLYCERIN SYRINGE 0 ML ONE (13:02)
[2017-11-16] MEDS ORDERED: NACL 0.9% 500 ML 500 ML ONE (13:02)
[2017-11-16] MEDS ORDERED: ZOFRAN IV PRN (16:35)
[2017-11-16] MEDS ORDERED: DEMEROL IV PRN (16:35)
[2017-11-16] MEDS ORDERED: DILAUDID IV PRN ×2 (16:35)
[2017-11-16] MEDS ORDERED: NARCAN 0.4 MG/1 ML IV PRN (16:35)
[2017-11-16] MEDS ORDERED: TORADOL IV PRN (16:35)
--- NOTE | 2017-11-16 18:50 | Short Stay Summary ---
Short Stay Documentation Date of service: 11/16/17 Narrative H&P: See H&P - History H&P: obtained from office - Allergies and Medications Current Medications: Allergies levofloxacin [From Levaquin] Allergy (Severe, Verified 11/11/17 15:50) Itching rash lisinopril Allergy (Mild, Verified 11/11/17 15:50) Swelling coughing dry Home Medications Medication Instructions Recorded Confirmed Last Taken Type Aspirin [Adult Low Dose Aspirin EC] 81 mg PO DAILY 03/24/17 11/11/17 11/15/17 History AtorvaSTATin [Lipitor] 80 mg PO QHS 03/24/17 11/11/17 11/15/17 History B Complex W-C No.20/Folic Acid 1 mg PO DAILY 03/24/17 11/11/17 11/15/17 History [Nephrocaps Softgel] Cholecalciferol Vit D3 [Vitamin D3] 1,000 units PO DAILY 03/24/17 11/11/1711/15 History Epoetin Domingo [Epogen] 20,000 unit SQ Q7D 03/24/17 11/11/17 11/15/17 History Insulin NPH Hum/Reg Insulin Hm 30 unit SQ BID 03/24/17 11/11/17 11/15/17 History [HumuLIN 70-30 Vial] Midodrine [Proamatine] 5 mg PO TID PRN 03/24/17 11/11/17 11/15/17 History Pantoprazole [Protonix TAB] 40 mg PO QDAY 03/24/17 11/11/17 11/15/17 History Amoxicillin/K Clav Tab [Augmentin 1 tab PO BID 11/11/17 11/11/17 11/15/17 History 875MG TAB] Metoprolol [Lopressor] 25 mg PO DAILY 11/11/17 11/11/17 11/15/17 History Active Medications Dextrose (D50w (25gm) Syringe) 25 ml IV PRN PRN PRN Reason: Hypoglycemia Last Admin: 11/16/17 10:32 Dose: 25 ml Hydromorphone HCl (Dilaudid) 0.25 mg IV Q10MIN PRN PRN Reason: Pain, Moderate (4-6) Stop: 11/17/17 16:34 Hydromorphone HCl (Dilaudid) 0.5 mg IV Q10MIN PRN PRN Reason: Pain , Severe (7-10) Stop: 11/17/17 16:34 Cefazolin Sodium (Ancef/Sterile Water 2 Gm/20 Ml) 2 gm in 20 mls @ 80 mls/hr IV PREOP NR; Protocol Stop: 11/16/17 23:59 Sodium Chloride (Nacl 0.9% 1000 Ml) 1,000 mls @ 42 mls/hr IV DIRECT SHANNON Last Admin: 11/16/17 09:40 Dose: 42 mls/hr Meperidine HCl (Demerol) 25 mg IV ONCE PRN PRN Reason: Shivering Midazolam HCl (Versed) 2 mg IV PREOP NR Stop: 11/16/17 23:59 Last Admin: 11/16/17 10:39 Dose: 2 mg Naloxone HCl (Narcan 0.4 Mg/1 Ml) 0.1 mg IV Q2MIN PRN PRN Reason: Res Rate </= 8 or 02 SAT < 92% Ondansetron HCl (Zofran) 4 mg IV ONCE PRN PRN Reason: Nausea And Vomiting - Brief post op/procedure progress note Date of procedure: 11/16/17 Pre-op diagnosis: Complications of Dialysis Access Post-op diagnosis: same Procedure: Revision with Elevation of Left Brachial Brachial Arteriovenous Fistula Anesthesia: GETA Surgeon: KAI QUINTEROS Estimated blood loss: other (300 mL) Pathology: none Condition: stable - Disposition Condition at discharge: Good Disposition: DC-01 TO HOME OR SELFCARE Short Stay Discharge Plan Activity: other (no heavy lifting with left arm) Diet: regular Wound: open to air, keep clean and dry, other (okay to wash the wound with and soap and water but do not soak in water) Follow up with: KAI QUINTEROS MD [Staff Physician] - 14 Days Prescriptions: HYDROcodone/APAP 7.5-325 [[place] 7.5/325] 1 each PO Q6HR PRN #60 tablet PRN Reason: Pain
--- NOTE | 2017-11-16 18:58 | Operative Report ---
Operative Report Operative Report: Date of procedure: 11/16/2017 Pre-operative diagnosis: Complications of Dialysis Access Post-operative diagnosis: Same Procedure(s): Revision with Interposition 6 mm Bovine Graft and Elevation of Left Brachiobrachial AV Fistula Surgeon: Tyler Larios MD Incoming Freight Clerk: None Anesthesia: General Endotracheal Anesthesia EBL: Minimal Counts: Correct Complications: None Condition: Stable Findings: Successful elevation of left brachiobrachial fistula with excellent thrill. Specimen: None Indication: The patient is a 62-year-old female with a history of end-stage renal disease and multiple AV access in her left upper extremity. She is in need of long- term access and is currently on hemodialysis through her right internal jugular permacath. She had creation of a left brachiobrachial arteriovenous fistula and is in need of elevation. She was given the risks, benefits, and alternative procedures and consented to procedure. Description of Procedure: The patient was brought to the operating room and laid in supine position after general endotracheal anesthesia was achieved her left arm was prepped and draped in normal sterile fashion. A longitudinal incision was then created on the medial aspect of the arm centered over the fistula extending from the axillary crease to the antecubital crease. Sharp dissection was used to continue the dissection down to the fistula. The fistula was then dissected circumferentially and all side branches were suture ligated and divided. Of note because of her previous AV access there were stents in the outflow veins in the vein appeared to flow through the collateral vein. A Judith-Wick tunneler was then used to tunnel from the distal part of the incision towards the proximal portion of the incision and a lateral and slightly curved direction. The fistula was then marked on the anterior surface, the inflow was controlled with a DeBakey, clamp and the outflow was controlled with bulldog clamps. This vessel was then divided near the arterial inflow and secured to the Judith-Wick tunneler with 2-0 silk and then pulled retrograde through the tunnel. I flushed the venous outflow with heparinized saline to assure that there was no evidence of twist or kinks. There appeared to be tension on the fistula so I used a short segment of a 6 mm bovine graft and beveled the end and created an end-to-end anastomosis between the venous portion of the fistula using 2 6-0 Prolenes in running fashion. I cut the graft to length and then beveled and and I then performed an end-to-end anastomosis between the bovine graft and the arterial inflow using two 6-0 Prolenes in running fashion. Prior to completing the anastomosis I flushed the arterial inflow of the fistula to ensure there was no clot or debris. I then completed the anastomosis and removed all clamps allowing flow through the fistula which had an excellent thrill. I then anesthetized the wound with 0.25% Marcaine. Hemostasis was achieved with a combination of quick clot, Surgicel, and Tisseel. Once hemostasis was achieved the wound was closed 2 layers using a 3-0 Vicryl in running fashion in the deep dermal layer and a 4-0 Monocryl in running fashion in the subcuticular. I then dressed the wound with Surgicel. The patient tolerated the procedure well, all sponge needle and instrument counts were correct, the patient was taken to the recovery area in stable condition.
[2017-11-16 20:27] VITALS: BP 152/65
== END 2017-11-16 20:00 | disposition home or self-care (01) ==
LOC: OR 06:17
PROVIDERS: ATTEND Surgery Vascular Surgery
DX: T82.898A Other specified complication of vascular prosthetic devices, implants and grafts, initial encounter (principal); I12.0 Hypertensive chronic kidney disease with stage 5 chronic kidney disease or end stage renal disease; E11.22 Type 2 diabetes mellitus with diabetic chronic kidney disease; N18.6 End stage renal disease; I25.10 Atherosclerotic heart disease of native coronary artery without angina pectoris; K21.9 Gastro-esophageal reflux disease without esophagitis; E78.00 Pure hypercholesterolemia, unspecified; Z88.1 Allergy status to other antibiotic agents; Z79.899 Other long term (current) drug therapy; Z88.8 Allergy status to other drugs, medicaments and biological substances; Z90.710 Acquired absence of both cervix and uterus; Z98.890 Other specified postprocedural states; Y83.2 Surgical operation with anastomosis, bypass or graft as the cause of abnormal reaction of the patient, or of later complication, without mention of misadventure at the time of the procedure
CPT/HCPCS: 36415; 36832; 80048; 82962; 85025; C1757; C1768; C9250; J0690; J1644; J1885; J2250; J2704; J3010; J7030; J7040; A4649; J2440; J2720; J3490

== ENCOUNTER 2017-12-09 08:42 | Day surgery (SDC) | payer MEDICARE ==
[~2017-12-09 08:42] MED LIST changes: -ANCEF/STERILE WATER 2 GM/20 ML 2 GM/20 ML SYRINGE IV NR; -NACL 0.9% 1000 ML 1,000 ML IV SCH; +WATER FOR IRRIG STERILE IR ONE; +WATER FOR IRRIG STERILE ONE
[2017-12-09] MEDS ORDERED: NACL 0.9% 1000 ML 1,000 ML IV SCH (09:00)
[2017-12-09] MEDS ORDERED: D50W (25GM) Syringe IV ONE ×3 (09:39→11:53)
--- NOTE | 2017-12-09 09:56 | Anesthesia Consultation ---
Anesthesia Consult and Med Hx Date of service: 12/09/17 - Airway Anesthetic Teeth Evaluation: Partials (upper and lower ) ROM Head & Neck: Adequate Mental/Hyoid Distance: Adequate Mallampati Class: Class III Intubation Access Assessment: Possibly Difficult - Pulmonary Exam CTA: Yes - Cardiac Exam Cardiac Exam: RRR - Pre-Operative Health Status ASA Pre-Surgery Classification: ASA3 Proposed Anesthetic Plan: MAC - Pulmonary Hx Smoking: Yes (QUIT 1981) - Cardiovascular System Hx Hypertension: Yes Hx Coronary Artery Disease: Yes Hx Heart Attack/AMI: Yes (2013) Hx Heart Murmur: Yes - Central Nervous System Hx Psychiatric Problems: No - Gastrointestinal Hx Gastroesophageal Reflux Disease: Yes - Endocrine Hx Renal Disease: Yes Hx End Stage Renal Disease: Yes Hx Insulin Dependent Diabetes: Yes - Hematic Hx Anemia: Yes - Other Systems Hx Cancer: No
--- NOTE | 2017-12-09 09:57 | Anesthesia Day of Surgery ---
Anesthesia Day of Surgery - Day of Surgery Patient Examined: Yes Patient H&P Reviewed: Yes Patient is NPO: Yes
[2017-12-09] MEDS ORDERED: DIPRIVAN 10 MG/ML IV ONE ×2 (10:46)
--- NOTE | 2017-12-09 11:20 | Post Operative Note ---
Pre-op diagnosis: chronic diarrhea Post-op diagnosis: same Findings: 1. Unremarkable colonoscopy. random biopsies obtained Procedure: 1. Colonoscopy with biopsies Anesthesia: MAC Surgeon: GRETEL CÁRDENAS Estimated blood loss: minimal Pathology: list (Random colon biopsies (r/o microscopic colitis)) Specimen disposition: to lab Condition: stable Disposition: same day
--- NOTE | 2017-12-09 11:23 | Operative Report ---
Operative Report Operative Report: Colonoscopy Procedure Note with Biopsies Date of procedure: 12/09/2017 Endoscopist: Vincent Fraser Pre-op diagnosis: chronic diarrhea Post-op diagnosis: unremarkable colonoscopy, biopsies obtained to r/o microscopic colitis Anesthesia: MAC Complications: No immediate complications Estimated blood loss: minimal Procedure: After consent was obtained, the patient was placed in the left lateral decubitus position. The fujinon colonoscope was inserted into the patient's rectum under direct vision, and advanced to the cecum without difficulty. The patient tolerated the procedure well. The views of the mucosa were fair. The quality of prep was fair. The patient's vital signs were monitored continuously throughout the procedure. Findings: The colon appeared normal. Random biopsies were obtained from throughout the colon to evaluate for microscopic colitis. Impression: 1. Unremarkable colonoscopy. Random biopsies obtained to rule out microscopic colitis. Recommendations: -follow-up pathology -return to GI clinic as scheduled
[2017-12-09 12:27] VITALS: BP 168/61
== END 2017-12-09 12:40 | disposition home or self-care (01) ==
LOC: GIO 08:42
PROVIDERS: ATTEND Internal Medicine Gastroenterology
DX: K52.9 Noninfective gastroenteritis and colitis, unspecified (principal); E11.22 Type 2 diabetes mellitus with diabetic chronic kidney disease; I12.0 Hypertensive chronic kidney disease with stage 5 chronic kidney disease or end stage renal disease; N18.6 End stage renal disease; I25.2 Old myocardial infarction; I25.10 Atherosclerotic heart disease of native coronary artery without angina pectoris; I10 Essential (primary) hypertension; K21.9 Gastro-esophageal reflux disease without esophagitis; Z98.890 Other specified postprocedural states; Z87.891 Personal history of nicotine dependence; Z99.2 Dependence on renal dialysis; Z88.8 Allergy status to other drugs, medicaments and biological substances
CPT/HCPCS: 45380; 82962; 88305; J2704; J7030

== ENCOUNTER 2018-02-17 06:00 | Day surgery (SDC) | payer MEDICARE ==
[~2018-02-17 06:00] MED LIST changes: +ANCEF/STERILE WATER 2 GM/20 ML 2 GM/20 ML SYRINGE IV NR; +NACL 0.9% 1000 ML 1,000 ML IV SCH; -WATER FOR IRRIG STERILE IR ONE; -WATER FOR IRRIG STERILE ONE
[2018-02-17] MEDS ORDERED: HEPARIN/NS 5000 UNIT/500ML(CATH LAB) 1,000 ML IR ONE (08:48)
[2018-02-17] MEDS ORDERED: HEPARIN 10,000 UNITS/10 ML ONE (08:48)
[2018-02-17] MEDS ORDERED: ANCEF/STERILE WATER 2 GM/20 ML 2 GM/20 ML SYRINGE IV ONE (08:49)
[2018-02-17] MEDS ORDERED: NACL 0.9% 250ML 250 ML ONE (08:49)
[2018-02-17] MEDS ORDERED: XYLOCAINE 1%/ EPI 1:100,000 INFILTRATI ONE (08:49)
[2018-02-17] MEDS: SUBLIMAZE ONE ×2 (09:37→11:13)
[2018-02-17] MEDS: VERSED ONE ×2 (09:37→11:13)
[2018-02-17] MEDS ORDERED: APRESOLINE ONE (11:26)
--- NOTE | 2018-02-17 11:39 | Short Stay Summary ---
Short Stay Documentation Date of service: 02/17/18 Narrative H&P: 63 year old female with ESRD and thrombosed left upper extremity brachio- basilic AVF who presents for thrombectomy, angioplasty, possible stenting. - History Principal diagnosis: left arm AVF thrombosis/malfunction AVF Past Medical History: dialysis, ESRD Past Surgical History: Other (left brachio-axillary AVG, left brachiobasilic AVF ) Social history: other (blind) - Allergies and Medications Current Medications: Allergies levofloxacin [From Levaquin] Allergy (Severe, Verified 02/04/18 21:52) Itching rash lisinopril Allergy (Mild, Verified 02/04/18 21:52) Swelling coughing dry Home Medications Medication Instructions Recorded Confirmed Last Taken Type AtorvaSTATin [Lipitor] 80 mg PO QHS 03/24/17 02/17/18 02/16/18 History B Complex W-C No.20/Folic Acid 1 mg PO DAILY 03/24/17 02/17/18 02/16/18 History [Nephrocaps Softgel] Cholecalciferol Vit D3 [Vitamin D3] 1,000 units PO DAILY 03/24/17 02/17/1802/16 History Epoetin Domingo [Epogen] 20,000 unit SQ Q7D 03/24/17 02/17/18 11/15/17 History Pantoprazole [Protonix TAB] 40 mg PO QDAY 03/24/17 02/17/18 02/16/18 History Metoprolol [Lopressor TAB] 25 mg PO DAILY 11/11/17 02/17/18 02/16/18 History Aspirin [Adult Low Dose Aspirin EC] 81 mg PO DAILY 30 Days #30 02/07/1802/16/18 Rx Insulin NPH Hum/Reg Insulin Hm 15 unit SQ BID 30 Days 02/07/18 02/17/18 20:00 Rx [HumuLIN 70-30 Vial] amLODIPine [Norvasc] 10 mg PO QDAY #30 tablet 02/07/18 02/17/18 02/16/18 Rx hydrALAZINE [Apresoline TAB] 100 mg PO TID 30 Days #90 tab 02/07/18 02/17/1806/26 Rx Active Medications Cefazolin Sodium (Ancef/Sterile Water 2 Gm/20 Ml) 2 gm in 20 mls @ 80 mls/hr IV PREOP NR; Protocol Stop: 02/17/18 23:59 Last Admin: 02/17/18 09:35 Dose: 20 mls Sodium Chloride (Nacl 0.9% 1000 Ml) 1,000 mls @ 42 mls/hr IV DIRECT SHANNON - Physical exam General appearance: no acute distress Lungs: Normal air movement Gastrointestinal: normal Extremities: normal temperature, normal color, abnormal (thrombosed left AVF) - Brief post op/procedure progress note Date of procedure: 02/17/18 Pre-op diagnosis: thrombosed left AVF Post-op diagnosis: same Procedure: Mechanical thrombectomy with peripheral angioplasty and stent-graft placement Central angioplasty Anesthesia: local (w/ conscious sedation) Surgeon: VANIA BETHEA Estimated blood loss: minimal Condition: stable - Hospital course Hospital course: Ready for discharge. Tolerated procedure well. - Disposition Disposition: DC/[place]-06 HOME UNDER HOME HLTH - Discharge Diagnoses (1) Arteriovenous fistula thrombosis Status: Acute (2) End stage renal disease Status: Chronic Short Stay Discharge Plan Activity: advance as tolerated Weight Bearing Status: Weight Bear as Tolerated Diet: renal Wound: keep clean and dry, other (have dialysis center remove stitches in 1 week , if they do not remove then stitches, then contact [facility]) Follow up with: FABIO ROSENTHAL MD [Other] - 7 Days Forms: AVG Arteriogram D/CInstruction
--- NOTE | 2018-02-17 11:42 | Operative Report ---
Operative Report Operative Report: EXAM: 1. Ultrasound guided access of the AV graft towards the venous limb. 2. Fistulogram 3. Angioplasty with 6 mm angioplasty balloon of the left central basilic vein which extends into the subclavian vein through an atretic axillary vein collateral 4. Stent grafting of the left central basilic vein and atretic axillary vein collateral with a 7 mm x 15 mm Viabahn stent graft and 7 mm x 5 mm Viabahn stent graft 5. Angioplasty of the basilic vein with a 6 mm angioplasty balloon 6. Angioplasty of the left subclavian vein with a 12 mm x 60 mm angioplasty 7. Trerotola mechanical thrombectomy the left basilic vein with subsequent Heath sweeping of the left basilic vein 8. Ultrasound guided access of the AV graft towards the arterial limb. 9. Selection of the peripheral portion of the basilic vein and a collateral of the basilic vein 10. Angioplasty of the peripheral and mid left basilic vein with a 6 mm angioplasty balloon 11. Angioplasty of the stent graft and central portion of the basilic vein with a 7 mm angioplasty balloon INDICATION: PARTIALLY THROMBOSED LEFT ARM AV FISTULA WITH END-STAGE RENAL DISEASE. DATE: 02/17/18 MEDICATIONS: Please refer to nursing documentation for complete list of medications and heparin administration. VERSED AND FENTANYL TITRATED TO MODERATE SEDATION. THE PATIENT WAS MONITORED UNDER CONTINUOUS CARDIOPULMONARY MONITORING THROUGHOUT THE CASE. COMPLICATIONS: NONE IMMEDIATE SECURITY OFFICER: VANIA BETHEA MD PROCEDURE: The procedure was discussed with the patient and the risks, benefits, and alternatives were discussed with the patient. Informed consent was obtained. The patient was transported into the angiography suite in stable condition and placed on the angiographic table. The left arm was assessed under real-time ultrasound which demonstrated a partially thrombosed left arm AV brachio- basilic fistula. The patient was prepped and draped in a sterile fashion. Lidocaine was used to anesthetize the skin. Under ultrasound guidance, the AV fistula was punctured with the needle pointing towards the venous limb. 0.018 inch wire was advanced through the needle and this was exchanged for a transitional dilator. The inner dilator and wire were removed and a 0.035 inch Chan wire was advanced through the transitional dilator. The dilator was exchanged for a 6 Arabic short sheath. Angled catheter was advanced over the wire and the wire was advanced into the central left basilic vein. The wire would not pass into the axillary vein. Glidewire and angled catheter were used to pass the wire centrally, but the catheter would not pass. Catheter was exchanged for Trailblazer which cross the occlusion. Digital subjective angiography demonstrated patency of the axillary vein, but the pain the catheter was in was a collateral of the axillary vein which was diminutive in size measuring only a few millimeters in size. In addition, a prior stent graft was partially occluding the vein. 0.018 inch wire was passed centrally. 6 mm angioplasty balloon was advanced over the wire and used to perform angioplasty across the atretic collateral of the axillary vein and the central portion of the basilic vein. There is a residual area of 99% narrowing which required angioplasty with a 6 mm Republic balloon. Digital subtraction angiography demonstrated irregularity of the collateral. I decided to place a 7 mm stent graft in the atretic axillary vein into the central portion of the basilic vein. This required further extension into the central portion of the basilic vein. 6 mm angioplasty balloon was used to perform post stenting angioplasty. Digital subtraction angiography demonstrated moderate narrowing of the left subclavian vein. This was treated with a 12 mm x 60 mm angioplasty balloon which demonstrated subsequent mild residual narrowing. Ultrasound was used to evaluate the fistula which demonstrated that there was still thrombus in the fistula. Trerotola mechanical thrombectomy device was used to perform thrombectomy of the basilic vein. Heath was then used to perform sweep from the sheath to the central veins. Digital subtraction angiography demonstrated clearance of thrombus. The arm was then punctured towards the arterial anastomosis under ultrasound guidance. 0.018 inch wire was advanced through the needle and exchanged for transitional dilator. The inner dilator and wire were removed and a 0.035 inch Chan wire was advanced to the transitional dilator. The dilator was exchanged for 6 Arabic short sheath. The angled catheter was advanced over the 0.035 wire and the wire was advanced into a large collateral of the basilic vein. Digital subtraction angiography demonstrated extensive flow into this collateral which was well-developed, possibly even bigger than the main fistula. Reflux angiography was performed demonstrating patency of the arterial anastomosis and the brachial artery proximal and distal to the anastomosis. There is severe 90% tandem narrowing of the peripheral portion of the basilic vein passing into the fistula. 6 mm angioplasty balloon was advanced over the wire and used to perform angioplasty of the peripheral and mid portions of the basilic vein resolution of the narrowing. There was some narrowing in the central portion of the basilic vein. The rest of the fistula was patent. 7 mm angioplasty balloon was then used to post-dilate the stents, and perform angioplasty of the central portion of the basilic vein. After angioplasty, there was prompt flow through the fistula with a strong thrill. All the wires were removed. 3-0 Vicryl sutures were used to close the fistula access sites. Dermabond was applied. Pressure was held until hemostasis was achieved. The patient was then transferred to the outpatient recovery area. FINDINGS: Please see the procedure note for the findings. IMPRESSION: 1. Successful pharmacomechanical thrombectomy of the thrombosed left AV fistula. 2. Successful stenting and angioplasty of the peripheral dialysis access and angioplasty of the central dialysis access. 3. Final imaging demonstrates no areas of focal stenosis within the AV fistula on completion venography.
[2018-02-17 12:45] VITALS: BP 154/65
== END 2018-02-17 13:06 | disposition home health service (06) ==
LOC: CATHLABREC 06:00
PROVIDERS: ATTEND Radiology Diagnostic Radiology
DX: T82.868A Thrombosis due to vascular prosthetic devices, implants and grafts, initial encounter (principal); N18.6 End stage renal disease; Y83.2 Surgical operation with anastomosis, bypass or graft as the cause of abnormal reaction of the patient, or of later complication, without mention of misadventure at the time of the procedure; Z88.8 Allergy status to other drugs, medicaments and biological substances; Z88.1 Allergy status to other antibiotic agents; Z79.899 Other long term (current) drug therapy; Z79.82 Long term (current) use of aspirin
CPT/HCPCS: 36415; 36906; 36907; 76937; 82962; 84132; 99156; 99157; C1725; C1751; C1757; C1769; C1874; C1894; J0360; J0690; J1644; J2250; J3010; J7050; Q9967